=== PATIENT | female | born 1965 | race Caucasian/White ===

== ENCOUNTER 2025-02-09 09:21 | Outpatient (CLI) | payer BC, SELFPAY ==
--- OUTSIDE RECORDS SUMMARY | 2025-02-09 09:28 | XMS_ITS | Data Portability ---
Author Organization [facility] MANITravis Soria Address [address] [place] [address] Care Team Providers Care Health Editor Name Role Phone GENARO PEREZ Primary Care Provider Assessment Encounter Date Assessment Date Assessment LastModified by Organization Details LastModified Time 04/12/2024 04/12/2024 Continue current therapy blood works been ordered osteoarthritis meloxicam obese she is losing weight with the Ozempic diabetes Ozempic metformin dyslipidemia rosuvastatin anxiety sertraline Cologuard and mammogram in July 2023 rtc 6 months Not available 04/14/2024 18:19:49 10/08/2024 10/08/2024 continue current therapy we are trying to get her mammogram reports from [facility] eye exam report diabetic foot exam report her blood pressure is well controlled all questions have been answered follow up 6 months [email or web address] Not available 10/14/2024 16:19:28 Plan of Treatment Reminders Order Date Submit Date Provider Last Modified By Organization Details Last Modified Time Details Appointments ANY 15 2024 01:30P M Genaro Perez MD Not available Not available Not available Lab noninvasi ve colorecta l cancer DNA + occult blood screening , QL, stool 2023 024 Dan[facility] d[facility] (Cologuard Orders Only), [address], [address], [place], [address], 04/26/2024 00:59:27 Referral None recorded. Procedures None recorded. Surgeries None recorded. Imaging None recorded. Medication Orders None recorded. Patient TargetsNo targets recorded. Patient Instructions Encounter Date Encounter Id Patient Instructions Last Modified By Organization Details Last Modified Time 10/08/2024 [id number] A healthy lifestyle: care instructions [email or web address] Not available 10/08/2024 14:55:00 Reason for Referral None Reported. Results Created Date Observation Date Name Description Value Unit Range Abnormal Flag Note LastModifiedBy Organization Detail LastModifiedTime 04/12/20 24 04/13/2024 LIPID PANEL cholesterol, total 160 mg/dL 100-19 9 Not Available [facility] ([facility]) [address] [place], [address], 04/13/2024 08:24:40 04/12/20 24 04/13/2024 LIPID PANEL triglyceride s 82 mg/dL 0-149 Not Available [facility] ([facility]) [address] [place], [address], 04/13/2024 08:24:40 04/12/20 24 04/13/2024 LIPID PANEL HDL cholesterol 61 mg/dL >39 Not Available [facility] ([facility]) [address] [place], [address], 04/13/2024 08:24:40 04/12/20 24 04/13/2024 LIPID PANEL VLDL cholesterol chinedu 15 mg/dL 5-40 Not Available [facility] ([facility]) [address] [place], [address], 04/13/2024 08:24:40 04/12/20 24 04/13/2024 LIPID PANEL LDL chol calc ([facility]) 84 mg/dL 0-99 Not Available [facility] ([facility]) [address] [place], [address], 04/13/2024 08:24:40 04/12/20 24 04/13/2024 COMP. METAB OLIC PANEL (14) glucose 106 mg/dL 70-99 above high normal Not Available [facility] ([facility]) [address] [place], [address], 04/13/2024 08:24:41 04/12/20 24 04/13/2024 COMP. METAB OLIC PANEL (14) BUN 12 mg/dL 6-24 Not Available [facility] ([facility]) [address] [facility] [place], [address], 04/13/2024 08:24:41 04/12/20 24 04/13/2024 COMP. METAB OLIC PANEL (14) creatinine 0.75 mg/dL 0.57-1 .00 Not Available [facility] ([facility]) [address] [facility] [place], [address], 04/13/2024 08:24:41 04/12/20 24 04/13/2024 COMP. METAB OLIC PANEL (14) eGFR 93 mL/mi n/1.7 3 >59 Not Available [facility] ([facility]) [address] [facility] [place], [address], 04/13/2024 08:24:41 04/12/20 24 04/13/2024 COMP. METAB OLIC PANEL (14) BUN/creatini ne ratio 16 9-23 Not Available [facility] ([facility]) [address] [facility] [place], [address], 04/13/2024 08:24:41 04/12/20 24 04/13/2024 COMP. METAB OLIC PANEL (14) sodium 140 mmol/ L 134-14 4 Not Available [facility] ([facility]) [address] [facility] [place], [address], 04/13/2024 08:24:41 04/12/20 24 04/13/2024 COMP. METAB OLIC PANEL (14) potassium 4.4 mmol/ L 3.5-5. 2 Not Available [facility] ([facility]) [address] [facility] [place], [address], 04/13/2024 08:24:41 04/12/20 24 04/13/2024 COMP. METAB OLIC PANEL (14) chloride 101 mmol/ L 96-106 Not Available [facility] ([facility]) [address] [place], [address], 04/13/2024 08:24:41 04/12/20 24 04/13/2024 COMP. METAB OLIC PANEL (14) carbon dioxide, total 26 mmol/ L 20 Not Available [facility] ([facility]) [address] [place], [place], [address], 04/13/2024 08:24:41 04/12/20 24 04/13/2024 COMP. METAB OLIC PANEL (14) calcium 9.5 mg/dL 8.7-10 .2 Not Available [facility] ([facility]) [address] [place], [address], 04/13/2024 08:24:41 04/12/20 24 04/13/2024 COMP. METAB OLIC PANEL (14) protein, total 6.9 g/dL 6.0-8. 5 Not Available [facility] ([facility]) [address], [place], [address], 04/13/2024 08:24:41 04/12/20 24 04/13/2024 COMP. METAB OLIC PANEL (14) albumin 4.5 g/dL 3.8-4. 9 Not Available [facility] ([facility]) [address] [place], [place], [address], 04/13/2024 08:24:41 04/12/20 24 04/13/2024 COMP. METAB OLIC PANEL (14) globulin, total 2.4 g/dL 1.5-4. 5 Not Available [facility] ([facility]) [address] [place], [address], 04/13/2024 08:24:41 04/12/20 24 04/13/2024 COMP. METAB OLIC PANEL (14) A/G ratio 1.9 Not Available [facility] ([facility]) [address] [place], [address], 04/13/2024 08:24:41 04/12/20 24 04/13/2024 COMP. METAB OLIC PANEL (14) bilirubin, total 0.3 mg/dL 0.0-1. 2 Not Available [facility] ([facility]) [address] [place], [address], 04/13/2024 08:24:41 04/12/20 24 04/13/2024 COMP. METAB OLIC PANEL (14) alkaline phosphatase 140 IU/L 44-121 above high normal Not Available [facility] ([facility]) [address] [facility] [place], [address], 04/13/2024 08:24:41 04/12/20 24 04/13/2024 COMP. METAB OLIC PANEL (14) AST (SGOT) 15 IU/L 0-40 Not Available [facility] ([facility]) [address] [place], [address], 04/13/2024 08:24:41 04/12/20 24 04/13/2024 COMP. METAB OLIC PANEL (14) ALT (SGPT) 9 IU/L 0-32 Not Available [facility] ([facility]) [address] [place], [address], 04/13/2024 08:24:41 04/12/20 24 04/13/2024 HEMOG LOBIN A1C hemoglobin A1C 5.6 % 4.8-5. 6 Predi abete s: 5.7 - 6.4 Diabe ankush: >6.4 Glyce sofie contr ol for adult s with diabe ankush: <7.0 Not Available [facility] ([facility]) [address] [place], [address], 04/13/2024 08:24:42 04/12/20 24 04/13/2024 CBC WITH DIFFE RENTI AL/PL ATELE T WBC 5.2 x10e3 /uL 3.4-10 .8 Not Available [facility] ([facility]) [address] [place], [address], 04/13/2024 08:24:43 04/12/20 24 04/13/2024 CBC WITH DIFFE RENTI AL/PL ATELE T RBC 4.78 x10e6 /uL 3.77-5 .28 Not Available [facility] ([facility]) [address] [place], [address], 04/13/2024 08:24:43 04/12/20 24 04/13/2024 CBC WITH DIFFE RENTI AL/PL ATELE T hemoglobin 13.6 g/dL 11.1-1 5.9 Not Available [facility] ([facility]) [address] [place], [address], 04/13/2024 08:24:43 04/12/20 24 04/13/2024 CBC WITH DIFFE RENTI AL/PL ATELE T hematocrit 41.6 % 34.0-4 6.6 Not Available [facility] ([facility]) [address] [place], [address], 04/13/2024 08:24:43 04/12/20 24 04/13/2024 CBC WITH DIFFE RENTI AL/PL ATELE T MCV 87 fL 79-97 Not Available [facility] ([facility]) [address] [place], [address], 04/13/2024 08:24:43 04/12/20 24 04/13/2024 CBC WITH DIFFE RENTI AL/PL ATELE T MCH 28.5 pg 26.6-3 3.0 Not Available [facility] ([facility]) [address] [place], [address], 04/13/2024 08:24:43 04/12/20 24 04/13/2024 CBC WITH DIFFE RENTI AL/PL ATELE T MCHC 32.7 g/dL 31.5-3 5.7 Not Available [facility] ([facility]) [address] [place], [address], 04/13/2024 08:24:43 04/12/20 24 04/13/2024 CBC WITH DIFFE RENTI AL/PL ATELE T RDW 13.3 % 11.7-1 5.4 Not Available [facility] ([facility]) [address] [facility], [place], [address], 04/13/2024 08:24:43 04/12/20 24 04/13/2024 CBC WITH DIFFE RENTI AL/PL ATELE T platelets 236 x10e3 /uL 150-45 0 Not Available [facility] ([facility]) [address] [facility], [place], [address], 04/13/2024 08:24:43 04/12/20 24 04/13/2024 CBC WITH DIFFE RENTI AL/PL ATELE T neutrophils 71 % notest ab. Not Available [facility] ([facility]) [address] [facility], [place], [address], 04/13/2024 08:24:43 04/12/20 24 04/13/2024 CBC WITH DIFFE RENTI AL/PL ATELE T lymphs 20 % notest ab. Not Available [facility] ([facility]) [address] [facility], [place], [address], 04/13/2024 08:24:43 04/12/20 24 04/13/2024 CBC WITH DIFFE RENTI AL/PL ATELE T monocytes 6 % notest ab. Not Available [facility] ([facility]) [address] [facility], [place], [address], 04/13/2024 08:24:43 04/12/20 24 04/13/2024 CBC WITH DIFFE RENTI AL/PL ATELE T eos 2 % notest ab. Not Available [facility] ([facility]) [address] [facility], [place], [address], 04/13/2024 08:24:43 04/12/20 24 04/13/2024 CBC WITH DIFFE RENTI AL/PL ATELE T basos 1 % notest ab. Not Available [facility] ([facility]) [address] [facility], [place], [address], 04/13/2024 08:24:43 04/12/20 24 04/13/2024 CBC WITH DIFFE RENTI AL/PL ATELE T neutrophils (absolute) 3.7 x10e3 /uL 1.4-7. 0 Not Available [facility] ([facility]) [address] [facility], [place], [address], 04/13/2024 08:24:43 04/12/20 24 04/13/2024 CBC WITH DIFFE RENTI AL/PL ATELE T lymphs (absolute) 1.0 x10e3 /uL 0.7-3. 1 Not Available [facility] ([facility]) [address] [facility], [place], [address], 04/13/2024 08:24:43 04/12/20 24 04/13/2024 CBC WITH DIFFE RENTI AL/PL ATELE T monocytes(ab solute) 0.3 x10e3 /uL 0.1-0. 9 Not Available [facility] ([facility]) [address] [place], [address], 04/13/2024 08:24:43 04/12/20 24 04/13/2024 CBC WITH DIFFE RENTI AL/PL ATELE T eos (absolute) 0.1 x10e3 /uL 0.0-0. 4 Not Available [facility] ([facility]) [address] [place], [address], 04/13/2024 08:24:43 04/12/20 24 04/13/2024 CBC WITH DIFFE RENTI AL/PL ATELE T baso (absolute) 0.0 x10e3 /uL 0.0-0. 2 Not Available [facility] ([facility]) [address] [place], [address], 04/13/2024 08:24:43 04/12/20 24 04/13/2024 CBC WITH DIFFE RENTI AL/PL ATELE T immature granulocytes 0 % notest ab. Not Available [facility] ([facility]) [address] [facility], [place], [address], 04/13/2024 08:24:43 04/12/20 24 04/13/2024 CBC WITH DIFFE RENTI AL/PL ATELE T immature grans (abs) 0.0 x10e3 /uL 0.0-0. 1 Not Available [facility] ([facility]) [address] [facility], [place], [address], 04/13/2024 08:24:43 04/23/20 24 04/23/2024 COLOG UARD cologuard result reportable NEGATI VE negati ve normal NEGAT DAT TEST RESUL T. A negat dat Colog uard resul t indic ates a low likel ihood that a color ectal cance r (CRC) or advan lorena adeno ma (rufus omato us polyp s with more advan lorena pre-m align ant featu res) is prese nt. The chanc e that a perso n with a negat dat Colog uard test has a color ectal cance r is less than 1 in 1500 (nega tive predi ctive value >99.9 %) or has an advan lorena adeno ma is less than 5.3% (nega tive predi ctive value 94.7% ). These data are based on a prosp ectiv e cross -sect ional study of 10,00 0 indiv idual s at [facility] risk for color ectal cance r who were scree jimmy with both Colog uard and colon oscop y. (Jeffrey Jiang et al, N Engl J Med 2014; 370(1 4):12 86-12 97) The yung l value (refe rence range ) for this assay is negat dat. COLOG UARD RE-SC REENI NG RECOM MENDA TION: Perio dic color ectal cance r scree victor manuel is an impor tant part of preve ntive healt hcare for asymp tomat ic indiv idual s at [facility] risk for color ectal cance r. Follo wing a negat dat Colog uard resul t, the Ameri can Cance r Socie ty and U.S. Multi -Soci ety Task Force scree victor manuel guide lines recom mend a Colog uard re-sc marvin escamilla inter [place] of 3 years . Refer ences : Ameri can Cance r Socie ty Guide line for Color ectal Cance r Scree victor manuel: https ://ww w.can cer.o rg/ca ncer/ colon -rect al-ca ncer/ detec tion- diagn osis- stagi ng/ac s-rec ommen datio ns.ht ml.; Dane JONES, Laila scott CR, Roosevelt RiveraK, Color ectal Cance r Scree victor manuel: Recom menda tions for Physi cians and Patie nts from the U.S. Multi -Soci ety Task Force on Color ectal Cance r Scree victor manuel , Am Nicole vorantsonja rolog y 2017; 112:1 016-1 030. TEST DESCR IPTIO N: Harrells site algor ithmi c jannet sis of stool DNA-b briseida dudley with hemog lobin immun oassa y. Quant itati ve value s of indiv idual bioma rkers are not repor table and are not assoc iated with indiv idual bioma rker resul t refer ence range s. Colog uard is inten ded for color ectal cance r scree victor manuel of adult s of eithe r sex, 45 years or older , who are at [facility] for color ectal cance r (CRC) . Colog uard has been appro bartolome for use by the U.S. FDA. The perfo rmanc e of Colog uard was estab lishe d in a cross secti onal study of [facility] adult s aged 50-84 . Colog uard perfo rmanc e in patie nts ages 45 to 49 years was estim ated by rebel-hilaria umanzor jannet sis of near- age group s. Colon oscop ies perfo rmed for a posit dat resul t may find as the most clini isabelle signi fican t lesio n: color ectal cance r [4.0% ], advan lorena adeno ma (incl uding sessi le dipika garcia polyp s great er than or equal to 1cm diame ter) [20%] or non- advan lorena adeno ma [31%] ; or no color ectal neopl katty [45%] . These estim ates are deriv ed from a prosp ectiv e cross -sect ional scree victor manuel study of 0 indiv idual s at [facility] risk for color ectal cance r who were scree jimmy with both Colog uard and colon oscop y. (Jeffrey Jiang et al, N Engl J Med 2014; 370(1 4):12 86-12 97.) Colog uard may produ ce a false negat dat or false posit dat resul t (no color ectal cance r or preca ncero us polyp prese nt at colon oscop y follo w up). A negat dat Colog uard test resul t does not guara ntee the absen ce of CRC or advan lorena adeno ma (pre- cance r). The curre nt Colog uard scree victor manuel inter [place] is every 3 years . (Amer ican Cance r Socie ty and U.S. Multi -Soci ety Task Force ). Colog uard perfo rmanc e data in a 0 patie nt pivot al study using colon oscop y as the refer ence metho d can be [facility]es sed [facility] locat ion: www.e xactl abs.c om/re sults . Addit ional descr iptio n of the Colog uard test proce ss, warni ngs and preca ution s can be found at www.c kelvin diana.c om. Not Available [facility] (Cologuard Orders Only) [address], [place], [address], 04/26/2024 00:59:27 Result Notes None recorded. Problems Name Problem SNOMED Code Status Onset Date Resolution Date Notes Provider Name and Address Organization Details Recorded Time Screening for malignant neoplasm of colon Active 2023 Jarett Fisher MA null, [place] - [facility] 4 10:52:28 Hyperlipidemia 07146383 Active 2023 Jarett Fisher [place] null, [place] [facility] 4 10:52:28 Diabetes mellitus 23277018 Active 2023 Jarett Fisher [place] null, [place] - [facility] 4 10:52:29 Anxiety 75021761 Active 2023 Genaro Perez MD Attn: Kota manrique,[address] [facility], [place], [address], [facility] - [facility] 4 16:19:05 Problem Notes None recorded. Medical Equipment None Reported. Allergies Allergen ID Allergen Name Allergen Category Reaction Reaction Severity Criticality Documentation Date Start Date Code Code System Note Provider Name and Address Organization Details Recorded Time 368236 Product containin g penicilli n (product) medicatio n Not available Not available Not available 04/12/2024 15769 8001 SNOMED Not Available Not Available Not Available 490631 Substance with sulfonami de structure and antibacte rial mechanism of action (substanc e) medicatio n Not available Not available Not available 04/12/2024 76385 8003 SNOMED Not Available Not Available Not Available 710867 Skelaxin medicatio n Not available Not available Not available 04/12/2024 02983 5 RxNorm Not Available Not Available Not Available Medications Name Sig Start Date Stop Date Status Note LastModified by Organization Details LastModified Time azithromyci n 250 mg tablet TAKE 2 TABLETS BY MOUTH TODAY, THEN TAKE 1 TABLET DAILY FOR 4 DAYS DIRECTED 02/07 completed Not Available Not Available Not Available meloxicam 15 mg tablet TAKE 1 TABLET BY MOUTH EVERY DAY active Not Available Not Available No t Available sertraline 100 mg tablet TAKE 1 TABLET DAILY 2024 active Not Available Not Available Not Avai lable metformin 1,000 mg tablet TAKE 1 TABLET BY MOUTH TWICE A DAY active Not Available Not Available No t Available sertraline 50 mg tablet 04/12 completed Not Available Not Available Not Available rosuvastati n 20 mg tablet TAKE 1 TABLET BY MOUTH EVERY DAY active Not Available Not Available No t Available Ozempic 1 mg/dose (4 mg/3 mL) subcutaneou s pen injector INJECT 1 MG UNDER THE SKIN ONE DAY A WEEK active Not Available Not Available No t Available Vitals Date Recorded Body height Body mass index (BMI) Body weight Heart rate Oxygen saturation Oxygen saturation in Arterial blood by Pulse oximetry Systolic blood pressure Diastolic blood pressure Provider Name and Address Organization Details Last Updated DateTime 4 167.64 cm 35.8 kg/m2 361132. 79 g 65 /min 97 % 97 % 124 mm[Hg] 84 mm[Hg] Amanda Moe MA [facility] 4 09:56:26 Date Recorded Body height Body mass index (BMI) Body weight Heart rate Oxygen saturation Oxygen saturation in Arterial blood by Pulse oximetry Systolic blood pressure Diastolic blood pressure Provider Name and Address Organization Details Last Updated DateTime 4 167.64 cm 36.3 kg/m2 778902. 85 g 78 /min 97 % 97 % 122 mm[Hg] 82 mm[Hg] Xenia Cordero MA [facility] 4 14:47:01 Date Recorded Body height Body mass index (BMI) Body weight Heart rate Oxygen saturation Oxygen saturation in Arterial blood by Pulse oximetry Systolic blood pressure Diastolic blood pressure Provider Name and Address Organization Details Last Updated DateTime 5 167.64 cm 35.2 kg/m2 63676.2 1 g 82 /min 98 % 98 % 112 mm[Hg] 64 mm[Hg] Xenia Cordero MA [facility] 5 14:12:48 Social History Question Answer Notes LastModified by Organizat ion Details LastModified Time Tobacco Smoking Status Never Smoker Amanda Moe MA [facility] 04/12/2024 09:54:27 Do You Have An Advance Directive? No Information n ot available 10/08/2024 What Is Your Level Of Alcohol Consumption? Occasional Information not available 04/12/2024 Are You Blind Or Do You Have Difficulty Seeing? No Information n ot available 04/12/2024 What Is Your Level Of Caffeine Consumption? Occasional Information not available 02/07/2025 In The 14 Days Before Symptom Onset, Have You Had Close Contact With A Laboratory-confirm ed COVID-19 While That Case Was Ill? No Information n ot available 10/08/2024 In The 14 Days Before Symptom Onset, Have You Had Close Contact With A Person Who Is Under Investigation For COVID-19 While That Person Was Ill? No Information not available 10/08/2024 Have You Been To An Area Known To Be High Risk For COVID-19? No Information not available 10/08/2024 Are You Deaf Or Do You Have Serious Difficulty Hearing? No Information not available 04/12/2024 Are There Any Guns Present In Your Home? No Information not available 10/08/2024 What Was The Date Of Your Most Recent Tobacco Screening? 02/07/2025 Information not available 02/07/2025 What Is Your Relationship Status? Information not available 04/12/2024 Do You Use Your Seat Belt Or Car Seat Routinely? Yes Information not available 10/08/2024 Do You Have Smoke And Carbon Monoxide Detectors In Your Home? Yes Information not available 10/08/2024 Do You Use Any Illicit Or Recreational Drugs? No Information not available 02/07/2025 Do You Use Sunscreen Routinely? No Information not available 10/08/2024 Has Tobacco Cessation Counseling Been Provided? No Information not available 02/07/2025 Do You Or Have You Ever Used Any Other Forms Of Tobacco Or Nicotine? No Information not available 02/07/2025 Sex: Female Functional Status Question Answer Note LastModified by Organization D etails LastModified Time Are you able to care for yourself? Yes Information n ot available 04/12/2024 Mental Status None recorded. Family History Nothing Reported. Medical History Condition Response High Blood Pressure Y High Cholesterol Y Gynecological HistoryNo gynecological history recorded. Obstetrics History GPAL:G 0 P 0 0 0 0 Immunizations Vaccine Type Date Status Note Provider Nam e and Address Organization Details Recorded Time Influenza, split virus, quadrivalent, preservative 2 completed Jarett Fisher [place] null, [place] - [facility] 04/12/2024 11:29:53 Influenza, split virus, quadrivalent, preservative 1 completed JEFFERY Ba[place], [place] - [facility] 04/12/2024 11:29:53 COVID-19 vaccine, vector-nr, rS-Ad26, PF, 0.5 mL 1 completed JEFF[place] [facility] 04/12/2024 11:29:53 influenza, unspecified formulation 8 completed JEFFERY [place] [facility] 04/12/2024 11:29:53 Influenza, split virus, quadrivalent, PF 0 completed JEFF[place] [facility] 04/12/2024 11:29:53 Past Encounters Encounter ID Performer Location Encounter Start Date Encounter Closed Date Diagnosis/Indication Diagnosis SNOMED-CT Code Diagnosis ICD10 Code Diagnosis Note [id number] Genaro Perez MD [facility] [place] [address] [place] [address] 04/12/2024 09:45:02 04/12/2024 11:00:37 Screening for malignant neoplasm of colon 047698810 Z12.11 Hyperlipidemia 80830125 E78.5 Diabetes mellitus 711408 09 E11.9 Anxiety 50513394 F41.9 Osteoarthritis 372758712 M19.90 [id number] Genaro Perez MD [facility] [place] [address] [place] [address] 10/08/2024 14:07:36 10/08/2024 15:54:33 Body mass index 30+ - obesity 468622625 Z68.36 Obesity 053418709 E66.9 Hyperlipidemia 17174374 E78.5 Diabetes mellitus 500197 09 E11.9 Anxiety 26081111 F41.9 [id number] Jarett Fisher MA [facility] [place] [address] [place] [address] 02/07/2025 13:57:12 02/07/2025 15:00:45 Body mass index 30+ - obesity 464389080 Z68.36 Obesity 025004355 E66.9 Diabetes mellitus 884698 09 E11.9 Hyperlipidemia 21753324 E78.5 Screening mammography 24 483261 Z12.31 Health Concerns Section Related Observation LastModified by Organization Detai ls LastModified Time None Recorded Concern Status LastModified by Organization Details LastModified Time None Recorded Advance Directives Directive N: Payers Encounter Date Sequence Insurance Name Policy Number Policy Peoples Covered Member ID Peoples Member ID Guarantor Name 04/12/2024 1 [place] [id number] Salma Urias [id number] Salma Urias 04/12/2024 2 [place] [id number] Salma Urias [id number] Salma Urias 10/08/2024 1 [place] [id number] Salma Urias [id number] Salma Urias 10/08/2024 2 [place] [id number] Salma Urias [id number] Salma Urias Notes Date Note Type Note Provider Name and Address Organization Details Recorded Time 04/12/2024 text/html Follow-up of her medical problems her osteoarthritis seems to be doing stable diabetes has been doing fine no polyphagia or polydipsia change continues to best success with the Ozempic dyslipidemia taking rosuvastatin without any side effects and her sertraline has her anxiety under control Genaro Perez MD Attn: Accounting,[address] [facility], [place], [address], [facility] 04/14/2024 18:20:17 10/08/2024 text/html diabetes tolerat ing medications without any hypoglycemic spells dyslipidemia taking rosuvastatin trying to follow a low-fat diet anxiety has been stable osteoarthritis is doing okay. Genaro Perez MD Attn: Accounting[address] [facility], [place], [address], [facility] 10/14/2024 16:19:45 OBGyn Episode No OBEpisode recorded.
--- OUTSIDE RECORDS SUMMARY | 2025-02-09 09:28 | XMS_ITS | CONTINUITY OF CARE DOCUMENT ---
Author Name donaldo fulton Address Unknown Organization [facility] Address [address] [place] [address] Phone [phone] Care Team Providers Care Repairer Kiln Car Name Role Phone Silverio HUGHES, Corey Unavailable GENARO DOWELL MD Unavailable GENARO DOWELL MD Unavailable INSURANCE PROVIDERS Payer name Policy type / Coverage type Una red green party ID [facility] [id number] Other [id number] [facility] [id number]
--- OUTSIDE RECORDS SUMMARY | 2025-02-09 09:29 | XMS_ITS | Data Portability ---
Author Organization [place] [facility], Main Office Address [address] [place] [address] Care Team Providers Care Centerpuncher Name Role Phone GENARO PEREZ Primary Care Provider [phone] GENARO PEREZ Referring Provider Assessment Encounter Date Assessment Date Assessment LastModified by Organization Details LastModified Time 03/24/2023 03/24/2023 Work reviewed looks fine diabetes dyslipidemia anxiety been discussed in detail continue current therapy follow-up in 6 months. [email or web address] Not available 03/24/2023 23:21:30 07/18/2023 07/18/2023 Continue current therapy increase Zoloft to 100 mg of follow-up in 4 months [email or web address] Not available 07/18/2023 22:49:41 11/14/2023 11/14/2023 Will continue current therapy follow-up in 4 months diagnosis in assessment plan and management of those diagnosis discussed [email or web address] Not available 11/30/2023 08:53:23 Plan of Treatment Reminders Order Date Submit Date Provider Last Modified By Organization Details Last Modified Time Details Appointments None recorded . Lab lipid panel, serum 023 03/24/20 [facility] (Lab), [address] [place], [address], 13:25:41 CMP, serum or plasma 023 03/24/20 [facility] (Lab), [address] [place], [address], 13:25:49 CBC w/ auto diff 023 03/24/20 TRE[facility] (Lab), [address] [place], [address], 3 13:01:23 HbA1c (hemoglo bin A1c), blood 023 03/24/20 cyahl [facility] (Lab), [address] [place], [address], 3 16:02:02 Referral None recorded . Procedures None recorded . Surgeries None recorded . Imaging None recorded . Medication Orders Zoloft 100 mg tablet 023 07/18/20 [facility], [address] [place] [address], [address], 3 22:49:04 Patient TargetsNo targets recorded. Patient InstructionsNo instructions recorded. Reason for Referral None Reported. Results Created Date Observation Date Name Description Value Unit Range Abnormal Flag Note LastModifiedBy Organization Detail LastModifiedTime 11/19/1911/19/2022 HEMOG LOBIN A1C HA1C 5.6 % 4.0-6. 0 Diabe ankush Scree victor manuel Crite jessy: <5.7% Consi stent with absen ce of diabe ankush 5.7-6 .4% Consi stent with incre ased risk for diabe ankush (pred iabet es) >OR=6 .5% Consi stent with diabe ankush REFER ENCE: Diabe ankush Care 2016, 39(Sarah ppl.1 ):s13 -s22 Not Available [facility] (Lab) [address] [place], [address], 11/19/2022 14:58:26 11/19/19 23 11/19/2022 COMPR EHENS DAT METAB OLIC PANEL GFR >60 Refer ence Range : Ashton ge GFR Healt hy Adult : >60 mL/mi n/1.7 3 m2 Chron ic Kidne y Disea se: 15-60 mL/mi n/1.7 3 m2 Kidne y Failu re: <15/m L/min /1.73 m2 www.n iddk. nih.g ov The MDRD study equat ion has not been valid ated in child jorje <18 years of age; pregn ant women ; the elder ly >85 years of age; or in some racia l or ethni c subgr oups, such as [facility] nics. Outsi de the valid ated ant eters , estim ated GFR is less accur ate, requi ring clini chinedu judgm ent on a case- by-ca se basis . Clini chinedu inter preta tion for other races and ages must be made by the clini alexander. The MDRD study equat ion has not been valid ated for the evalu ation of serum creat inine relat ed to nutri reza l statu s or medic ation usage . For perso ns <18 years of age, a pedia tric GFR calcu lator is avail able on the [facility] websi te: https ://toni w.sandee reese.o rg/pr ofess ional s/kdo qi/gf r_cal culat or Not Available [facility] (Lab) [address] [place], [address], 11/19/2022 12:01:11 11/19/19 23 11/19/2022 COMPR EHENS DAT METAB OLIC PANEL alkaline phosphatase 119 U/L 38-126 Not Available [facility] (Lab) [address] [place], [address], 11/19/2022 12:01:11 11/19/19 23 11/19/2022 COMPR EHENS DAT METAB OLIC PANEL alanine aminotransfe rase 15 U/L 0-35 Not Available [facility] (Lab) [address] [place], [address], 11/19/2022 12:01:11 11/19/19 23 11/19/2022 COMPR EHENS DAT METAB OLIC PANEL aspartate aminotransfe rase 17 U/L 15-37 Not Available [facility] (Lab) [address] [place], [address], 11/19/2022 12:01:11 11/19/19 23 11/19/2022 COMPR EHENS DAT METAB OLIC PANEL bilirubin, total 0.50 mg/dL 0.20-1 .30 Not Available [facility] (Lab) [address] [place], [address], 11/19/2022 12:01:11 11/19/19 23 11/19/2022 COMPR EHENS DAT METAB OLIC PANEL calcium 9.5 mg/dL 8.4-10 .2 Not Available [facility] (Lab) [address] [place], [address], 11/19/2022 12:01:11 11/19/19 23 11/19/2022 COMPR EHENS DAT METAB OLIC PANEL total protein 7.1 g/dL 6.3-8. 2 Not Available [facility] (Lab) [address] [place], [address], 11/19/2022 12:01:11 11/19/19 23 11/19/2022 COMPR EHENS DAT METAB OLIC PANEL albumin 4.4 g/dL 3.4-5. 0 Not Available [facility] (Lab) [address] [place], [address], 11/19/2022 12:01:11 11/19/19 23 11/19/2022 COMPR EHENS DAT METAB OLIC PANEL globulin 2.7 g/dL 2.6-4. 2 Not Available [facility] (Lab) [address] [place], [address], 11/19/2022 12:01:11 11/19/19 23 11/19/2022 COMPR EHENS DAT METAB OLIC PANEL A/G ratio 1.6 ratio 1.0-2. 0 Not Available [facility] (Lab) [address] [place], [address], 11/19/2022 12:01:11 11/19/19 23 11/19/2022 COMPR EHENS DAT METAB OLIC PANEL sodium 140 mmol/ L 137-[address] [facility] (Lab) [address] [place], [address], 11/19/2022 12:01:11 11/19/19 23 11/19/2022 COMPR EHENS DAT METAB OLIC PANEL potassium 4.3 mmol/ L 3.5-5. [address] [facility] (Lab) [address] [place], [address], 11/19/2022 12:01:11 11/19/19 23 11/19/2022 COMPR EHENS DAT METAB OLIC PANEL chloride 101 mmol/ L 98-107 Not Available [facility] (Lab) [address] [place], [address], 11/19/2022 12:01:11 11/19/19 23 11/19/2022 COMPR EHENS DAT METAB OLIC PANEL carbon dioxide 31 mmol/ L 22-[address] [facility] (Lab) [address] [place], [address], 11/19/2022 12:01:11 11/19/19 23 11/19/2022 COMPR EHENS DAT METAB OLIC PANEL anion gap 12.3 mmol/ L 14-22 low Not Available [facility] (Lab) [address] [place], [address], 11/19/2022 12:01:11 11/19/19 23 11/19/2022 COMPR EHENS DAT METAB OLIC PANEL glucose 130 mg/dL 70-99 high Not Available [facility] (Lab) [address] [place], [address], 11/19/2022 12:01:11 11/19/19 23 11/19/2022 COMPR EHENS DAT METAB OLIC PANEL BUN 12 mg/dL 8-[address] [facility] (Lab) [address] [place], [address], 11/19/2022 12:01:11 11/19/19 23 11/19/2022 COMPR EHENS DAT METAB OLIC PANEL creatinine 0.75 mg/dL 0.66-1 .25 Not Available [facility] (Lab) [address] [place], [address], 11/19/2022 12:01:11 11/19/19 23 11/19/2022 LIPID PANEL cholesterol 176 mg/dL 140-19 9 NIH JOSELITO NSUS RECOM MENDA TION FOR DENG STERO L: ADULT CHILD LOW RISK: <200 <170 BORDE RLINE : <200- 239 ----- HIGH RISK: >240 >200 Not Available [facility] (Lab) [address] [place], [address], 11/19/2022 12:00:58 11/19/19 23 11/19/2022 LIPID PANEL triglyceride s 99 mg/dL 0-150 NIH JOSLEITO NSUS REPOR T RECOM MENDA TION FOR TRIGL YCERI HAILEY: ADULT CHILD LOW RISK: <150 ----- BODER LINE: 150-1 99 ----- HIGH RISK: >200 ----- Not Available [facility] (Lab) [address] [place] [address], [address], 11/19/2022 12:00:58 11/19/19 23 11/19/2022 LIPID PANEL HDL cholesterol 62 mg/dL 40- Not Available [facility] (Lab) [address] [place], [address], 11/19/2022 12:00:58 11/19/19 23 11/19/2022 LIPID PANEL LDL cholesterol, calculated 94 mg/dL 0-130 NIH JOSELITO NSUS REPOR T RECOM MENDA TIONS FOR LDL: ADULT CHILD LOW RISK <130 <110 (OPTI MAL LDL) <100 ----- BORDE RLINE : 130-1 59 ----- HIGH RISK: >160 >130 A TRIGL YCERI DE RESUL T >400 INVAL IDATE S THE CALCU LATIO N FOR LDL FRACT IONAT ION - THE LDL RESUL T WILL NOT BE REPOR EMILY. Not Available [facility] (Lab) [address], [place], [address], 11/19/2022 12:00:58 12/04/19 23 12/04/2022 APTT APTT 27.0 secon ds 23.4-3 1.4 PLEAS E NOTE NEW APTT REFER ENCE RANGE EFFEC TIVE 10/18 . Not Available [facility] (Lab) [address] [facility], [place], [address], 12/04/2022 12:23:13 12/04/1912/04/2022 PROTI ME W/INR protime 9.8 secon ds 9.5-11 .5 Not Available [facility] (Lab) [address] [facility], [place], [address], 12/04/2022 12:23:09 12/04/1912/04/2022 PROTI ME W/INR INR 1.0 INR INDIC ATION S 2.0 - 3.0 PROPH YLAXI S: VENOU S THROM BOSIS (HIGH RISK SURGE RY) AND SYSTE OMID EMBOL ISM (TISS UE HEART VALVE S, AMI VALVU LAR HEART DISEA SE AND ATRIA L FIBRI LLATI ON). TREAT MENT: VENOU S THROM BOSIS AND PULMO NARY EMBOL ISM BILEA FLET MECHA NICAL VALVE S IN AORTI C POSIT ION. 2.5 - 3.5 MECHA NICAL PROST HETIC HEART VALVE S (TILT ING DISK VALVE S AND BILEA FLET MECHA NICAL VALVE S IN WISAM L POSIT ION). PREVE NTION OF RECUR RENT MYOCA RDIAL INFAR CTION . ANTIP HOSPH OLIPI D SYNDR OME. Not Available [facility] (Lab) [address] [facility], [place], [address], 12/04/2022 12:23:09 02/04/20 23 12/04/2022 CBC/C OMPLE TE BLD COUNT W/DIF F lymphocytes 19.9 % 16.0-4 7.0 Not Available [facility] (Lab) [address] [place], [address], 12/04/2022 12:10:32 12/04/19 23 12/04/2022 CBC/C OMPLE TE BLD COUNT W/DIF F monocytes 6.3 % 5.0-12 .0 Not Available [facility] (Lab) [address] [place], [address], 12/04/2022 12:10:32 12/04/1912/04/2022 CBC/C OMPLE TE BLD COUNT W/DIF F eosinophils 2.4 % 1.0-7. 0 Not Available [facility] (Lab) [address] [place], [address], 12/04/2022 12:10:32 12/04/19 23 12/04/2022 CBC/C OMPLE TE BLD COUNT W/DIF F basophils 0.5 % 0.0-2. 0 Not Available [facility] (Lab) [address] [place], [address], 12/04/2022 12:10:32 12/04/1912/04/2022 CBC/C OMPLE TE BLD COUNT W/DIF F immature granulocytes 0.2 % 0.00-0 .50 Not Available [facility] (Lab) [address] [place], [address], 12/04/2022 12:10:32 12/04/19 23 12/04/2022 CBC/C OMPLE TE BLD COUNT W/DIF F neutrophils, absolute count 4.48 x10'3 /uL 1.5-8. 0 Not Available [facility] (Lab) [address] [place], [address], 12/04/2022 12:10:32 12/04/19 23 12/04/2022 CBC/C OMPLE TE BLD COUNT W/DIF F lymphocytes, absolute count 1.26 x10'3 /uL 1.07-3 .43 Not Available [facility] (Lab) [address] [place], [address], 12/04/2022 12:10:32 12/04/19 23 12/04/2022 CBC/C OMPLE TE BLD COUNT W/DIF F monocytes, absolute count 0.40 x10'3 /uL 0.29-0 .99 Not Available [facility] (Lab) [address] [place], [address], 12/04/2022 12:10:32 12/04/1912/04/2022 CBC/C OMPLE TE BLD COUNT W/DIF F eosinophils, absolute count 0.15 x10'3 /uL 0.02-0 .53 Not Available [facility] (Lab) [address] [place], [address], 12/04/2022 12:10:32 12/04/19 23 12/04/2022 CBC/C OMPLE TE BLD COUNT W/DIF F basophils, absolute count 0.03 x10'3 /uL 0.01-0 .08 Not Available [facility] (Lab) [address] [place], [address], 12/04/2022 12:10:32 12/04/19 23 12/04/2022 CBC/C OMPLE TE BLD COUNT W/DIF F immature granulocytes ,absolute 0.01 x10'3 /uL 0.00-0 .05 Not Available [facility] (Lab) [address] [place], [address], 12/04/2022 12:10:32 12/04/19 23 12/04/2022 CBC/C OMPLE TE BLD COUNT W/DIF F nucleated red blood cells 0.0 % -0 Not Available [facility] (Lab) [address] [place], [address], 12/04/2022 12:10:32 12/04/19 23 12/04/2022 CBC/C OMPLE TE BLD COUNT W/DIF F NRBC# 0.00 x10'3 /uL Not Available [facility] (Lab) [address] [place], [address], 12/04/2022 12:10:32 12/04/19 23 12/04/2022 CBC/C OMPLE TE BLD COUNT W/DIF F white blood cells 6.3 x10'3 /uL 4.2-10 .8 Not Available [facility] (Lab) [address] [place], [address], 12/04/2022 12:10:32 12/04/19 23 12/04/2022 CBC/C OMPLE TE BLD COUNT W/DIF F red blood cells 4.50 x10'6 /uL 3.80-5 .20 Not Available [facility] (Lab) [address] [place], [address], 12/04/2022 12:10:32 12/04/19 23 12/04/2022 CBC/C OMPLE TE BLD COUNT W/DIF F hemoglobin 12.9 g/dL 12.0-1 5.6 Not Available [facility] (Lab) [address] [place], [address], 12/04/2022 12:10:32 12/04/19 23 12/04/2022 CBC/C OMPLE TE BLD COUNT W/DIF F hematocrit 39.4 % 35.7-4 5.7 Not Available [facility] (Lab) [address] [place], [address], 12/04/2022 12:10:32 12/04/19 23 12/04/2022 CBC/C OMPLE TE BLD COUNT W/DIF F mean red cell volume 87.6 fL 82.0-9 9.0 Not Available [facility] (Lab) [address] [place], [address], 12/04/2022 12:10:32 12/04/19 23 12/04/2022 CBC/C OMPLE TE BLD COUNT W/DIF F mean red cell hemoglobin 28.7 pg 27.0-3 3.0 Not Available [facility] (Lab) [address] [place], [address], 12/04/2022 12:10:32 12/04/19 23 12/04/2022 CBC/C OMPLE TE BLD COUNT W/DIF F mean RBC HGB concentratio n 32.7 g/dL 31.0-3 6.0 Not Available [facility] (Lab) [address] [place], [address], 12/04/2022 12:10:32 12/04/19 23 12/04/2022 CBC/C OMPLE TE BLD COUNT W/DIF F red cell distribution width 13.9 % 11.8-1 5.5 Not Available [facility]Lab[facility] [address] [facility] [place], [address], 12/04/2022 12:10:32 12/04/19 23 12/04/2022 CBC/C OMPLE TE BLD COUNT W/DIF F platelets 222 x10'3 /uL 150-40 0 Not Available [facility] (Lab) [address] [place], [address], 12/04/2022 12:10:32 12/04/19 23 12/04/2022 CBC/C OMPLE TE BLD COUNT W/DIF F mean platelet volume 10.3 fL 9.0-12 .4 Not Available [facility] (Lab) [address] [place], [address], 12/04/2022 12:10:32 12/04/19 23 12/04/2022 CBC/C OMPLE TE BLD COUNT W/DIF F neutrophils 70.7 % 39.0-7 2.0 Not Available [facility] (Lab) [address] [place], [address], 12/04/2022 12:10:32 03/11/2003/11/2023 COMPR EHENS DAT METAB OLIC PANEL sodium 138 mmol/ L 137-14 5 Not Available [facility] (Lab) [address] [place], [address], 03/11/2023 12:11:03 03/11/20 23 03/11/2023 COMPR EHENS DAT METAB OLIC PANEL potassium 4.5 mmol/ L 3.5-5. [address] [facility] (Lab) [address] [facility] [place], [address], 03/11/2023 12:11:03 03/11/20 23 03/11/2023 COMPR EHENS DAT METAB OLIC PANEL chloride 105 mmol/ L 98-[address] [facility] (Lab) [address] [place], [address], 03/11/2023 12:11:03 03/11/20 23 03/11/2023 COMPR EHENS DAT METAB OLIC PANEL carbon dioxide 26 mmol/ L 22-30 Not Available [facility] (Lab) [address] [place], [address], 03/11/2023 12:11:03 03/11/2003/11/2023 COMPR EHENS DAT METAB OLIC PANEL anion gap 11.5 mmol/ L 14-22 low Not Available [facility] (Lab) [address] [place], [address], 03/11/2023 12:11:03 03/11/20 23 03/11/2023 COMPR EHENS DAT METAB OLIC PANEL glucose 115 mg/dL 70-99 high Not Available [facility] (Lab) [address] [place], [address], 03/11/2023 12:11:03 03/11/20 23 03/11/2023 COMPR EHENS DAT METAB OLIC PANEL BUN 14 mg/dL 8-19 Not Available [facility] (Lab) [address] [place], [address], 03/11/2023 12:11:03 03/11/20 23 03/11/2023 COMPR EHENS DAT METAB OLIC PANEL creatinine 0.79 mg/dL 0.66-1 .25 Not Available [facility] (Lab) [address] [place], [address], 03/11/2023 12:11:03 03/11/20 23 03/11/2023 COMPR EHENS DAT METAB OLIC PANEL GFR >60 Refer ence Range : Ashton ge GFR Healt hy Adult : >60 mL/mi n/1.7 3 m2 Chron ic Kidne y Disea se: 15-60 mL/mi n/1.7 3 m2 Kidne y Failu re: <15/m L/min /1.73 m2 www.n iddk. nih.g ov The MDRD study equat ion has not been valid ated in child jorje <18 years of age; pregn ant women ; the elder ly >85 years of age; or in some racia l or ethni c subgr oups, such as [facility] nics. Outsi de the valid ated ant eters , estim ated GFR is less accur ate, requi ring clini chinedu judgm ent on a case- by-ca se basis . Clini chinedu inter preta tion for other races and ages must be made by the clini alexander. The MDRD study equat ion has not been valid ated for the evalu ation of serum creat inine relat ed to nutri reza l statu s or medic ation usage . For perso ns <18 years of age, a pedia tric GFR calcu lator is avail able on the F websi te: https ://toni reese.o rg/pr ofess ional s/kdo qi/gf r_cal culat or Not Available [facility] (Lab) [address] [place], [address], 03/11/2023 12:11:03 03/11/20 23 03/11/2023 COMPR EHENS DAT METAB OLIC PANEL alkaline phosphatase 114 U/L 38-126 Not Available [facility] (Lab) [address] [place], [address], 03/11/2023 12:11:03 03/11/20 23 03/11/2023 COMPR EHENS DAT METAB OLIC PANEL alanine aminotransfe rase 12 U/L 0-35 Not Available [facility] (Lab) [address] [place], [address], 03/11/2023 12:11:03 03/11/20 23 03/11/2023 COMPR EHENS DAT METAB OLIC PANEL aspartate aminotransfe rase 19 U/L 15-37 Not Available [facility] (Lab) [address] [place], [address], 03/11/2023 12:11:03 03/11/20 23 03/11/2023 COMPR EHENS DAT METAB OLIC PANEL bilirubin, total 0.40 mg/dL 0.20-1 .30 Not Available [facility] (Lab) [address] [place], [address], 03/11/2023 12:11:03 03/11/20 23 03/11/2023 COMPR EHENS DAT METAB OLIC PANEL calcium 9.2 mg/dL 8.4-10 .2 Not Available [facility] (Lab) [address] [facility] [place], [address], 03/11/2023 12:11:03 03/11/20 23 03/11/2023 COMPR EHENS DAT METAB OLIC PANEL total protein 6.8 g/dL 6.3-8. 2 Not Available [facility] (Lab) [address] [place], [address], 03/11/2023 12:11:03 03/11/2003/11/2023 COMPR EHENS DAT METAB OLIC PANEL albumin 4.0 g/dL 3.4-5. 0 Not Available [facility] (Lab) [address] [place], [address], 03/11/2023 12:11:03 03/11/20 23 03/11/2023 COMPR EHENS DAT METAB OLIC PANEL globulin 2.8 g/dL 2.6-4. 2 Not Available [facility] (Lab) [address] [place], [address], 03/11/2023 12:11:03 03/11/2003/11/2023 COMPR EHENS DAT METAB OLIC PANEL A/G ratio 1.4 ratio 1.0-2. 0 Not Available [facility] (Lab) [address] [place], [address], 03/11/2023 12:11:03 03/11/2003/11/2023 LIPID PANEL cholesterol 153 mg/dL 140-19 9 NIH JOSELITO NSUS RECOM MENDA TION FOR DENG STERO L: ADULT CHILD LOW RISK: <200 <170 BORDE RLINE : <200- 239 ----- HIGH RISK: >240 >200 Not Available [facility] (Lab) [address] [place], [address], 03/11/2023 12:11:23 03/11/2003/11/2023 LIPID PANEL triglyceride s 75 mg/dL 0-150 NIH JOSELITO NSUS REPOR T RECOM MENDA TION FOR TRIGL YCERI HAILEY: ADULT CHILD LOW RISK: <150 ----- BODER LINE: 150-1 99 ----- HIGH RISK: >200 ----- Not Available [facility] (Lab) [address] [place], [address], 03/11/2023 12:11:23 03/11/2003/11/2023 LIPID PANEL HDL cholesterol 62 mg/dL 40- Not Available [facility] (Lab) [address] [facility] [place], [address], 03/11/2023 12:11:23 03/11/2003/11/2023 LIPID PANEL LDL cholesterol, calculated 76 mg/dL 0-130 NIH JOSELITO NSUS REPOR T RECOM MENDA TIONS FOR LDL: ADULT CHILD LOW RISK <130 <110 (OPTI MAL LDL) <100 ----- BORDE RLINE : 130-1 59 ----- HIGH RISK: >160 >130 A TRIGL YCERI DE RESUL T >400 INVAL IDATE S THE CALCU LATIO N FOR LDL FRACT IONAT ION - THE LDL RESUL T WILL NOT BE REPOR EMILY. Not Available [facility] (Lab) [address] [place], [address], 03/11/2023 12:11:23 03/11/20 23 03/11/2023 MICRO ALBUM N RNDM W/CRE AT RATIO ur creat 42.33 mg/dL REFER ENCE RANGE NOT ESTAB LISHE D FOR RANDO M URINE CREAT ININE Not Available [facility] (Lab) [address] [place], [address], 03/11/2023 12:54:45 03/11/20 23 03/11/2023 MICRO ALBUM N RNDM W/CRE AT RATIO microalbumin , urine <6.0 mg/L 0.0-16 .6 Not Available [facility] (Lab) [address] [place], [address], 03/11/2023 12:54:45 03/11/20 23 03/11/2023 HEMOG LOBIN A1C HA1C 5.3 % 4.0-6. 0 Diabe ankush Scree victor manuel Crite jessy: <5.7% Consi stent with absen ce of diabe ankush 5.7-6 .4% Consi stent with incre ased risk for diabe ankush (pred iabet es) >OR=6 .5% Consi stent with diabe ankush REFER ENCE: Diabe ankush Care 2016, 39(Sarah ppl.1 ):s13 -s[address] [facility] (Lab) [address] [place], [address], 03/11/2023 13:46:32 07/05/2007/05/2023 CBC/C OMPLE TE BLD COUNT W/DIF F white blood cells 6.9 x10'3 /uL 4.2-[address] [facility] (Lab) [address] [place], [address], 07/05/2023 13:01:23 07/05/2007/05/2023 CBC/C OMPLE TE BLD COUNT W/DIF F red blood cells 4.47 x10'6 /uL 3.80-5 .20 Not Available [facility] (Lab) [address] [place], [address], 07/05/2023 13:01:23 07/05/2007/05/2023 CBC/C OMPLE TE BLD COUNT W/DIF F hemoglobin 13.2 g/dL 12.0-1 5.6 Not Available [facility] (Lab) [address] [place], [address], 07/05/2023 13:01:23 07/05/2007/05/2023 CBC/C OMPLE TE BLD COUNT W/DIF F hematocrit 40.3 % 35.7-4 5.7 Not Available [facility] (Lab) [address] [place], [address], 07/05/2023 13:01:23 07/05/2007/05/2023 CBC/C OMPLE TE BLD COUNT W/DIF F mean red cell volume 90.2 fL 82.0-9 9.0 Not Available [facility] (Lab) [address] [place], [address], 07/05/2023 13:01:23 07/05/2007/05/2023 CBC/C OMPLE TE BLD COUNT W/DIF F mean red cell hemoglobin 29.5 pg 27.0-[address] [facility] (Lab) [address] [place], [address], 07/05/2023 13:01:23 07/05/2007/05/2023 CBC/C OMPLE TE BLD COUNT W/DIF F mean RBC HGB concentratio n 32.8 g/dL 31.0-[address] [facility] (Lab) [address] [facility] [place], [address], 07/05/2023 13:01:07/05/2007/05/2023 CBC/C OMPLE TE BLD COUNT W/DIF F red cell distribution width 13.6 % 11.8-1 5.5 Not Available [facility] (Lab) [address] [place], [address], 07/05/2023 13:01:07/05/2007/05/2023 CBC/C OMPLE TE BLD COUNT W/DIF F platelets 253 x10'3 /uL 150-40 0 Not Available [facility] (Lab) [address] [place], [address], 07/05/2023 13:01:07/05/2007/05/2023 CBC/C OMPLE TE BLD COUNT W/DIF F mean platelet volume 11.8 fL 9.0-12 .4 Not Available [facility] (Lab) [address] [place], [address], 07/05/2023 13:01:07/05/2007/05/2023 CBC/C OMPLE TE BLD COUNT W/DIF F neutrophils 70.5 % 39.0-7 2.0 Not Available [facility] (Lab) [address] [place], [address], 07/05/2023 13:01:07/05/2007/05/2023 CBC/C OMPLE TE BLD COUNT W/DIF F lymphocytes 18.9 % 16.0-4 7.0 Not Available [facility] (Lab) [address] [place], [address], 07/05/2023 13:01:07/05/2007/05/2023 CBC/C OMPLE TE BLD COUNT W/DIF F monocytes 6.1 % 5.0-12 .0 Not Available [facility] (Lab) [address] [place], [address], 07/05/2023 13:01:07/05/2007/05/2023 CBC/C OMPLE TE BLD COUNT W/DIF F eosinophils 3.5 % 1.0-7. 0 Not Available [facility] (Lab) [address] [place], [address], 07/05/2023 13:01:07/05/2007/05/2023 CBC/C OMPLE TE BLD COUNT W/DIF F basophils 0.6 % 0.0-2. 0 Not Available [facility] (Lab) [address] [place], [address], 07/05/2023 13:01:07/05/2007/05/2023 CBC/C OMPLE TE BLD COUNT W/DIF F immature granulocytes 0.4 % 0.00-0 .50 Not Available [facility] (Lab) [address] [place], [address], 07/05/2023 13:01:07/05/2007/05/2023 CBC/C OMPLE TE BLD COUNT W/DIF F neutrophils, absolute count 4.84 x10'3 /uL 1.5-8. 0 Not Available [facility] (Lab) [address] [place], [address], 07/05/2023 13:01:07/05/2007/05/2023 CBC/C OMPLE TE BLD COUNT W/DIF F lymphocytes, absolute count 1.30 x10'3 /uL 1.07-3 .43 Not Available [facility] (Lab) [address] [place], [address], 07/05/2023 13:01:07/05/2007/05/2023 CBC/C OMPLE TE BLD COUNT W/DIF F monocytes, absolute count 0.42 x10'3 /uL 0.29-0 .99 Not Available [facility] (Lab) [address] [place], [address], 07/05/2023 13:01:07/05/2007/05/2023 CBC/C OMPLE TE BLD COUNT W/DIF F eosinophils, absolute count 0.24 x10'3 /uL 0.02-0 .53 Not Available [facility] (Lab) [address] [place], [address], 07/05/2023 13:01:07/05/2007/05/2023 CBC/C OMPLE TE BLD COUNT W/DIF F basophils, absolute count 0.04 x10'3 /uL 0.01-0 .08 Not Available [facility] (Lab) [address] [place], [address], 07/05/2023 13:01:07/05/2007/05/2023 CBC/C OMPLE TE BLD COUNT W/DIF F immature granulocytes ,absolute 0.03 x10'3 /uL 0.00-0 .05 Not Available [facility] (Lab) [address] [place], [address], 07/05/2023 13:01:23 07/05/2007/05/2023 CBC/C OMPLE TE BLD COUNT W/DIF F nucleated red blood cells 0.0 % -0 Not Available [facility] (Lab) [address] [place], [address], 07/05/2023 13:01:23 07/05/2007/05/2023 CBC/C OMPLE TE BLD COUNT W/DIF F NRBC# 0.00 x10'3 /uL Not Available [facility] (Lab) [address] [place], [address], 07/05/2023 13:01:23 07/05/2007/05/2023 LIPID PANEL cholesterol 170 mg/dL 140-19 9 NIH JOSELITO NSUS RECOM MENDA TION FOR DENG STERO L: ADULT CHILD LOW RISK: <200 <170 BORDE RLINE : <200- 239 ----- HIGH RISK: >240 >200 Not Available [facility] (Lab) [address] [place], [address], 07/05/2023 13:25:41 07/05/2007/05/2023 LIPID PANEL triglyceride s 105 mg/dL 0-150 NIH JOSELITO NSUS REPOR T RECOM MENDA TION FOR TRIGL YCERI HAILEY: ADULT CHILD LOW RISK: <150 ----- BODER LINE: 150-1 99 ----- HIGH RISK: >200 ----- Not Available [facility] (Lab) [address] [place], [address], 07/05/2023 13:25:41 07/05/2007/05/2023 LIPID PANEL HDL cholesterol 59 mg/dL 40- Not Available [facility] (Lab) [address] [place], [address], 07/05/2023 13:25:41 07/05/2007/05/2023 LIPID PANEL LDL cholesterol, calculated 90 mg/dL 0-130 NIH JOSELITO NSUS REPOR T RECOM MENDA TIONS FOR LDL: ADULT CHILD LOW RISK <130 <110 (OPTI MAL LDL) <100 ----- BORDE RLINE : 130-1 59 ----- HIGH RISK: >160 >130 A TRIGL YCERI DE RESUL T >400 INVAL IDATE S THE CALCU LATIO N FOR LDL FRACT IONAT ION - THE LDL RESUL T WILL NOT BE REPOR EMILY. Not Available [facility] (Lab) [address] [place], [address], 07/05/2023 13:25:41 07/05/20 23 07/05/2023 COMPR EHENS DAT METAB OLIC PANEL sodium 139 mmol/ L 137-[address] [facility] (Lab) [address] [place], [address], 07/05/2023 13:25:48 07/05/20 23 07/05/2023 COMPR EHENS DAT METAB OLIC PANEL potassium 4.3 mmol/ L 3.5-5. 1 Not Available [facility] (Lab) [address] [place], [address], 07/05/2023 13:25:48 07/05/20 23 07/05/2023 COMPR EHENS DAT METAB OLIC PANEL chloride 103 mmol/ L 98-107 Not Available [facility] (Lab) [address] [place], [address], 07/05/2023 13:25:48 07/05/20 23 07/05/2023 COMPR EHENS DAT METAB OLIC PANEL carbon dioxide 29 mmol/ L 22-[address] [facility] (Lab) [address] [place], [address], 07/05/2023 13:25:48 07/05/20 23 07/05/2023 COMPR EHENS DAT METAB OLIC PANEL anion gap 11.3 mmol/ L 14-22 low Not Available [facility] (Lab) [address] [place], [address], 07/05/2023 13:25:48 07/05/20 23 07/05/2023 COMPR EHENS DAT METAB OLIC PANEL glucose 136 mg/dL 70-99 high Not Available [facility] (Lab) [address] [facility] [place], [address], 07/05/2023 13:25:48 07/05/2007/05/2023 COMPR EHENS DAT METAB OLIC PANEL BUN 14 mg/dL 8-19 Not Available [facility] (Lab) [address] [place], [address], 07/05/2023 13:25:48 07/05/2007/05/2023 COMPR EHENS DAT METAB OLIC PANEL creatinine 0.79 mg/dL 0.66-1 .25 Not Available [facility] (Lab) [address] [place], [address], 07/05/2023 13:25:48 07/05/2007/05/2023 COMPR EHENS DAT METAB OLIC PANEL GFR >60 Refer ence Range : Ashton ge GFR Healt hy Adult : >60 mL/mi n/1.7 3 m2 Chron ic Kidne y Disea se: 15-60 mL/mi n/1.7 3 m2 Kidne y Failu re: <15/m L/min /1.73 m2 www.n iddk. nih.g ov The MDRD study equat ion has not been valid ated in child jorje <18 years of age; pregn ant women ; the elder ly >85 years of age; or in some racia l or ethni c subgr oups, such as [facility] nics. Outsi de the valid ated ant eters , estim ated GFR is less accur ate, requi ring clini chinedu judgm ent on a case- by-ca se basis . Clini chinedu inter preta tion for other races and ages must be made by the clini alexander. The MDRD study equat ion has not been valid ated for the evalu ation of serum creat inine relat ed to nutri reza l statu s or medic ation usage . For perso ns <18 years of age, a pedia tric GFR calcu lator is avail able on the [facility] websi te: https ://toni martini.kid hugh.o rg/pr ofess ional s/kdo qi/gf r_cal culat or Not Available [facility] (Lab) [address] [place], [address], 07/05/2023 13:25:48 07/05/20 23 07/05/2023 COMPR EHENS DAT METAB OLIC PANEL alkaline phosphatase 124 U/L 38-126 Not Available [facility] (Lab) [address] [place], [address], 07/05/2023 13:25:48 07/05/20 23 07/05/2023 COMPR EHENS DAT METAB OLIC PANEL alanine aminotransfe rase 13 U/L 0-35 Not Available [facility] (Lab) [address] [place], [address], 07/05/2023 13:25:48 07/05/20 23 07/05/2023 COMPR EHENS DAT METAB OLIC PANEL aspartate aminotransfe rase 16 U/L 15-37 Not Available [facility] (Lab) [address] [place], [address], 07/05/2023 13:25:48 07/05/20 23 07/05/2023 COMPR EHENS DAT METAB OLIC PANEL bilirubin, total 0.30 mg/dL 0.20-1 .30 Not Available [facility] (Lab) [address] [place], [address], 07/05/2023 13:25:48 07/05/20 23 07/05/2023 COMPR EHENS DAT METAB OLIC PANEL calcium 8.7 mg/dL 8.4-10 .2 Not Available [facility] (Lab) [address] [place], [address], 07/05/2023 13:25:48 07/05/20 23 07/05/2023 COMPR EHENS DAT METAB OLIC PANEL total protein 6.8 g/dL 6.3-8. 2 Not Available [facility] (Lab) [address] [place], [address], 07/05/2023 13:25:48 07/05/20 23 07/05/2023 COMPR EHENS DAT METAB OLIC PANEL albumin 4.2 g/dL 3.4-5. 0 Not Available [facility] (Lab) [address] [place], [address], 07/05/2023 13:25:48 07/05/20 23 07/05/2023 COMPR EHENS DAT METAB OLIC PANEL globulin 2.6 g/dL 2.6-4. 2 Not Available [facility] (Lab) [address] [place], [address], 07/05/2023 13:25:48 07/05/20 23 07/05/2023 COMPR EHENS DAT METAB OLIC PANEL A/G ratio 1.6 ratio 1.0-2. [address] [facility] (Lab) [address] [place], [address], 07/05/2023 13:25:48 07/05/2007/05/2023 HEMOG LOBIN A1C HA1C 5.4 % 4.0-6. 0 Diabe ankush Scree victor manuel Crite jessy: <5.7% Consi stent with absen ce of diabe ankush 5.7-6 .4% Consi stent with incre ased risk for diabe ankush (pred iabet es) >OR=6 .5% Consi stent with diabe ankush REFER ENCE: Diabe ankush Care 2016, 39(Sarah ppl.1 ):s13 -s22 Not Available [facility] (Lab) [address] [place], [address], 07/05/2023 14:45:31 11/08/19 24 11/08/2023 CBC/C OMPLE TE BLD COUNT W/DIF F white blood cells 5.1 x10'3 /uL 4.2-10 .8 Not Available [facility] (Lab) [address] [place], [address], 11/08/2023 10:02:30 11/08/19 24 11/08/2023 CBC/C OMPLE TE BLD COUNT W/DIF F red blood cells 4.46 x10'6 /uL 3.80-5 .20 Not Available [facility] (Lab) [address] [place], [address], 11/08/2023 10:02:30 11/08/19 24 11/08/2023 CBC/C OMPLE TE BLD COUNT W/DIF F hemoglobin 13.2 g/dL 12.0-1 5.6 Not Available [facility] (Lab) [address] [place], [address], 11/08/2023 10:02:30 11/08/19 24 11/08/2023 CBC/C OMPLE TE BLD COUNT W/DIF F hematocrit 40.1 % 35.7-4 5.7 Not Available [facility] (Lab) [address] [place], [address], 11/08/2023 10:02:30 11/08/19 24 11/08/2023 CBC/C OMPLE TE BLD COUNT W/DIF F mean red cell volume 89.9 fL 82.0-9 9.0 Not Available [facility] (Lab) [address] [place], [address], 11/08/2023 10:02:30 11/08/19 24 11/08/2023 CBC/C OMPLE TE BLD COUNT W/DIF F mean red cell hemoglobin 29.6 pg 27.0-3 3.0 Not Available [facility] (Lab) [address] [place], [address], 11/08/2023 10:02:30 11/08/19 24 11/08/2023 CBC/C OMPLE TE BLD COUNT W/DIF F mean RBC HGB concentratio n 32.9 g/dL 31.0-3 6.0 Not Available [facility] (Lab) [address] [place], [address], 11/08/2023 10:02:30 11/08/19 24 11/08/2023 CBC/C OMPLE TE BLD COUNT W/DIF F red cell distribution width 13.8 % 11.8-1 5.5 Not Available [facility] (Lab) [address] [place], [address], 11/08/2023 10:02:30 11/08/19 24 11/08/2023 CBC/C OMPLE TE BLD COUNT W/DIF F platelets 239 x10'3 /uL 150-40 0 Not Available [facility] (Lab) [address] [place], [address], 11/08/2023 10:02:30 11/08/19 24 11/08/2023 CBC/C OMPLE TE BLD COUNT W/DIF F mean platelet volume 11.4 fL 9.0-12 .4 Not Available [facility] (Lab) [address] [place], [address], 11/08/2023 10:02:30 11/08/19 24 11/08/2023 CBC/C OMPLE TE BLD COUNT W/DIF F neutrophils 65.4 % 39.0-7 2.0 Not Available [facility] (Lab) [address] [place], [address], 11/08/2023 10:02:30 11/08/19 24 11/08/2023 CBC/C OMPLE TE BLD COUNT W/DIF F lymphocytes 23.3 % 16.0-4 7.0 Not Available [facility] (Lab) [address] [place], [address], 11/08/2023 10:02:30 11/08/19 24 11/08/2023 CBC/C OMPLE TE BLD COUNT W/DIF F monocytes 7.1 % 5.0-12 .0 Not Available [facility] (Lab) [address] [place], [address], 11/08/2023 10:02:30 11/08/1911/08/2023 CBC/C OMPLE TE BLD COUNT W/DIF F eosinophils 3.2 % 1.0-7. 0 Not Available [facility] (Lab) [address] [place], [address], 11/08/2023 10:02:30 11/08/1911/08/2023 CBC/C OMPLE TE BLD COUNT W/DIF F basophils 0.8 % 0.0-2. 0 Not Available [facility] (Lab) [address] [place], [address], 11/08/2023 10:02:30 11/08/1911/08/2023 CBC/C OMPLE TE BLD COUNT W/DIF F immature granulocytes 0.2 % 0.00-0 .50 Not Available [facility] (Lab) [address] [place], [address], 11/08/2023 10:02:30 11/08/1911/08/2023 CBC/C OMPLE TE BLD COUNT W/DIF F neutrophils, absolute count 3.32 x10'3 /uL 1.5-8. 0 Not Available [facility] (Lab) [address] [place], [address], 11/08/2023 10:02:30 11/08/1911/08/2023 CBC/C OMPLE TE BLD COUNT W/DIF F lymphocytes, absolute count 1.18 x10'3 /uL 1.07-3 .43 Not Available [facility] (Lab) [address] [place], [address], 11/08/2023 10:02:30 11/08/1911/08/2023 CBC/C OMPLE TE BLD COUNT W/DIF F monocytes, absolute count 0.36 x10'3 /uL 0.29-0 .99 Not Available [facility] (Lab) [address] [place], [address], 11/08/2023 10:02:30 11/08/19 24 11/08/2023 CBC/C OMPLE TE BLD COUNT W/DIF F eosinophils, absolute count 0.16 x10'3 /uL 0.02-0 .53 Not Available [facility] (Lab) [address] [place], [address], 11/08/2023 10:02:30 11/08/19 24 11/08/2023 CBC/C OMPLE TE BLD COUNT W/DIF F basophils, absolute count 0.04 x10'3 /uL 0.01-0 .08 Not Available [facility] (Lab) [address] [place], [address], 11/08/2023 10:02:30 11/08/19 24 11/08/2023 CBC/C OMPLE TE BLD COUNT W/DIF F immature granulocytes ,absolute 0.01 x10'3 /uL 0.00-0 .05 Not Available [facility] (Lab) [address] [place], [address], 11/08/2023 10:02:30 11/08/19 24 11/08/2023 CBC/C OMPLE TE BLD COUNT W/DIF F nucleated red blood cells 0.0 % -0 Not Available [facility] (Lab) [address] [place], [address], 11/08/2023 10:02:30 11/08/19 24 11/08/2023 CBC/C OMPLE TE BLD COUNT W/DIF F NRBC# 0.00 x10'3 /uL Not Available [facility] (Lab) [address] [place], [address], 11/08/2023 10:02:30 11/08/19 24 11/08/2023 COMPR EHENS DAT METAB OLIC PANEL sodium 138 mmol/ L 137-14 5 Not Available [facility] (Lab) [address] [place], [address], 11/08/2023 12:01:22 11/08/19 24 11/08/2023 COMPR EHENS DAT METAB OLIC PANEL potassium 4.2 mmol/ L 3.5-5. [address] [facility] (Lab) [address] [place], [address], 11/08/2023 12:01:22 11/08/19 24 11/08/2023 COMPR EHENS DAT METAB OLIC PANEL chloride 104 mmol/ L 98-107 Not Available [facility] (Lab) [address] [place], [address], 11/08/2023 12:01:22 11/08/19 24 11/08/2023 COMPR EHENS DAT METAB OLIC PANEL carbon dioxide 28 mmol/ L 22-30 Not Available [facility] (Lab) [address] [place], [address], 11/08/2023 12:01:22 11/08/19 24 11/08/2023 COMPR EHENS DAT METAB OLIC PANEL anion gap 10.2 mmol/ L 14-22 low Not Available [facility] (Lab) [address] [place], [address], 11/08/2023 12:01:22 11/08/19 24 11/08/2023 COMPR EHENS DAT METAB OLIC PANEL glucose 111 mg/dL 70-99 high Not Available [facility] (Lab) [address] [place], [address], 11/08/2023 12:01:22 11/08/19 24 11/08/2023 COMPR EHENS DAT METAB OLIC PANEL BUN 13 mg/dL 8-19 Not Available [facility] (Lab) [address] [place], [address], 11/08/2023 12:01:22 11/08/19 24 11/08/2023 COMPR EHENS DAT METAB OLIC PANEL creatinine 0.71 mg/dL 0.66-1 .25 Not Available [facility] (Lab) [address] [place], [address], 11/08/2023 12:01:22 11/08/19 24 11/08/2023 COMPR EHENS DAT METAB OLIC PANEL GFR >60 Refer ence Range : Ashton ge GFR Healt hy Adult : >60 mL/mi n/1.7 3 m2 Chron ic Kidne y Disea se: 15-60 mL/mi n/1.7 3 m2 Kidne y Failu re: <15/m L/min /1.73 m2 www.n iddk. nih.g ov The MDRD study equat ion has not been valid ated in child jorje <18 years of age; pregn ant women ; the elder ly >85 years of age; or in some racia l or ethni c subgr oups, such as [facility] n[facility]. Outsi de the valid ated ant eters , estim ated GFR is less accur ate, requi ring clini chinedu judgm ent on a case- by-ca se basis . Clini chinedu inter preta tion for other races and ages must be made by the clini alexander. The MDRD study equat ion has not been valid ated for the evalu ation of serum creat inine relat ed to nutri reza l statu s or medic ation usage . For perso ns <18 years of age, a pedia tric GFR calcu lator is avail able on the [facility] websi te: https ://toni reese.harish shaikh/rufus andersenal s/michaelo qi/gf r_cal culat or Not Available [facility] (Lab) [address] [place], [address], 11/08/2023 12:01:22 11/08/19 24 11/08/2023 COMPR EHENS DAT METAB OLIC PANEL alkaline phosphatase 101 U/L 38-126 Not Available [facility] (Lab) [address] [place], [address], 11/08/2023 12:01:22 11/08/19 24 11/08/2023 COMPR EHENS DAT METAB OLIC PANEL alanine aminotransfe rase 10 U/L 0-35 Not Available [facility] (Lab) [address] [place], [address], 11/08/2023 12:01:22 11/08/19 24 11/08/2023 COMPR EHENS DAT METAB OLIC PANEL aspartate aminotransfe rase 18 U/L 15-37 Not Available [facility] (Lab) [address] [place], [address], 11/08/2023 12:01:22 11/08/19 24 11/08/2023 COMPR EHENS DAT METAB OLIC PANEL bilirubin, total 0.50 mg/dL 0.20-1 .30 Not Available [facility] (Lab) [address] [place], [address], 11/08/2023 12:01:22 11/08/19 24 11/08/2023 COMPR EHENS DAT METAB OLIC PANEL calcium 9.5 mg/dL 8.4-10 .2 Not Available [facility] (Lab) [address] [place], [address], 11/08/2023 12:01:22 11/08/19 24 11/08/2023 COMPR EHENS DAT METAB OLIC PANEL total protein 6.9 g/dL 6.3-8. 2 Not Available [facility] (Lab) [address] [place], [address], 11/08/2023 12:01:22 11/08/19 24 11/08/2023 COMPR EHENS DAT METAB OLIC PANEL albumin 4.2 g/dL 3.4-5. 0 Not Available [facility] (Lab) [address] [place], [address], 11/08/2023 12:01:22 11/08/19 24 11/08/2023 COMPR EHENS DAT METAB OLIC PANEL globulin 2.7 g/dL 2.6-4. 2 Not Available [facility] (Lab) [address] [place], [address], 11/08/2023 12:01:22 11/08/19 24 11/08/2023 COMPR EHENS DAT METAB OLIC PANEL A/G ratio 1.6 ratio 1.0-2. 0 Not Available [facility] (Lab) [address] [place], [address], 11/08/2023 12:01:22 11/08/19 24 11/08/2023 LIPID PANEL cholesterol 150 mg/dL 140-19 9 NIH JOSELITO NSUS RECOM MENDA TION FOR DENG STERO L: ADULT CHILD LOW RISK: <200 <170 BORDE RLINE : <200- 239 ----- HIGH RISK: >240 >200 Not Available [facility] (Lab) [address] [place], [address], 11/08/2023 12:01:25 11/08/1911/08/2023 LIPID PANEL triglyceride s 69 mg/dL 0-150 NIH JOSELITO NSUS REPOR T RECOM MENDA TION FOR TRIGL YCERI HAILEY: ADULT CHILD LOW RISK: <150 ----- BODER LINE: 150-1 99 ----- HIGH RISK: >200 ----- Not Available [facility] (Lab) [address] [place], [address], 11/08/2023 12:01:25 11/08/19 24 11/08/2023 LIPID PANEL HDL cholesterol 59 mg/dL 40- Not Available [facility] (Lab) [address] [place], [address], 11/08/2023 12:01:25 11/08/19 24 11/08/2023 LIPID PANEL LDL cholesterol, calculated 77 mg/dL 0-130 NIH JOSELITO NSUS REPOR T RECOM MENDA TIONS FOR LDL: ADULT CHILD LOW RISK <130 <110 (OPTI MAL LDL) <100 ----- BORDE RLINE : 130-1 59 ----- HIGH RISK: >160 >130 A TRIGL YCERI DE RESUL T >400 INVAL IDATE S THE CALCU LATIO N FOR LDL FRACT IONAT ION - THE LDL RESUL T WILL NOT BE REPOR EMILY. Not Available [facility] (Lab) [address] [place], [address], 11/08/2023 12:01:25 11/08/19 24 11/08/2023 HEMOG LOBIN A1C HA1C 5.0 % 4.0-6. 0 Diabe ankush Scree victor manuel Crite jessy: <5.7% Consi stent with absen ce of diabe ankush 5.7-6 .4% Consi stent with incre ased risk for diabe ankush (pred iabet es) >OR=6 .5% Consi stent with diabe ankush REFER ENCE: Diabe ankush Care 2016, 39(Sarah ppl.1 ):s13 -s22 Not Available [facility] (Lab) [address] [place], [address], 11/08/2023 15:14:08 10/15/20 22 10/15/2022 CT, head, w/o contr ast [facility] [address] [place] [address] Patien t Name: SALMA SHIELDS Access ion #: [id number] Sex: F : 1964 3 Locati on: RAD Attend ing Physic judy: JOEL PEREZ Orderi Physic judy: JOEL PEREZ Exam Date: 2021 1:07 PM Exam Name: CT HEAD WO Admitt ing Diagno sis(es ): RADIOL OGY REPORT - FINAL EXAM: CT HEAD WO HISTOR Y: dizzin ess and giddin ess COMPAR ZOE: None TECHNI QUE: Noncon trast axial CT images of the head were perfor med. Sagitt al and jorgensen l reform atted images were obtain ed. This CT exam was perfor med using 1 or more of the follow ing dose reduct ion techni ques: Automa emily exposu re contro l, adjust ment of the mA and/or kv accord ing to patien t size, or the use of iterat dat recons tructi on techni ques. Page 1 of 2 [facility] Patien t Name: JOSE A SHIELDSI L Access ion #: [id number] Sex: F : 1964 3 Exam Date: 2021 1:07 PM Exam Name: CT HEAD WO Admitt ing Diagno sis(es ): FINDIN GS: Brain: The mayes-w harvey matter differ entiat ion is within normal limits . There is not eviden ce of edema, enceph alomal acic residu als, residu als of infarc tion, hemorr kanika, midlin e shift, or sulcal efface ment. Ventri cles: Midlin e, normal size. Vibration Engineer ior fossa: Unrema rkable Mastoi d air cells: Aerate d bilate rally. Sinuse s: Unrema rkable as visual ized. Soft tissue s: Unrema rkable . IMPRES DEQUAN: No CT eviden ce of an acute intrac ranial proces s. Create d and electr onical ly signed by: Huang bender MD Signed Date: 2021 1:18 PM (CT) Dictat ed by: Huang bender MD DD: 2021 1:18 PM (CT) DT: 2021 1:18 PM (CT) Page 2 of 2 [id number] [facility] (Imaging) [address] [place], [address], 12/29/2022 05:04:56 08/29/20 23 08/29/2023 MAMMO , scree victor manuel, digit al, bilat eral No observ ation record ed. [id number] [place], [address], 10/01/2023 11:18:35 Result Notes None recorded. Problems Name Problem SNOMED Code Status Onset Date Resolution Date Notes Provider Name and Address Organization Details Recorded Time Nausea and vomiting 81716022 Active 2021 Not Available [facility] 4 04:54:48 Tear of meniscus of knee 641713975 Active 2020 Not Available [facility] 4 04:54:48 Pure hypercholeste rolemia 602797666 Active Not Available [facility] 4 04:54:48 Type 2 diabetes mellitus without complication 012809056 Active Not Available [facility] 4 04:54:48 Dizziness 328883873 Active 2021 Not Available [facility] 4 04:54:48 Platelet count below reference range 084068894 Active Not Available [facility] 4 04:54:48 Easy bruising 272854909 Active 2022 Not Available [facility] 4 04:54:48 Laryngitis 75871688 Active Not Available [facility] 4 04:54:48 Anxiety 71644217 Active 2019 Not Available [facility] 4 04:54:48 Thrombocytosi s 6767756 Active Not Available [facility] 4 04:54:48 Palpitations 07050207 Active Not Available [facility] 4 04:54:48 Problem Notes None recorded. Procedures Surgical History Date Name Laterality Status Provider Name and Address Organization Details Recorded Time 10/08/20 21 KNEE ARTHROSCOPY (SURG) completed Not Available [facility] 12/29/2022 05:04:51 Hysterectomy completed Not Available [facility] 12/29/2022 04:43:55 Dilation and curettage completed Not Available [facility] 12/29/2022 04:43:55 I & d of vulva/perineum completed Not Available [facility] 12/29/2022 04:43:55 Imaging Results Imaging Date Name Status LastModified by Organiz ation Details LastModified Time 10/15/2022 CT, head, w/o contrast completed [id number] [facility] (Imaging) [address] [place], [address], 12/29/2022 05:04:56 08/29/2023 MAMMO, screening, digital, bilateral completed [email or web address], [address], 10/01/2023 11:18:35 Procedure Notes None recorded. Medical Equipment None Reported. Allergies Allergen ID Allergen Name Allergen Category Reaction Reaction Severity Criticality Documentation Date Start Date Code Code System Note Provider Name and Address Organization Details Recorded Time 8291 Substance with sulfonami de structure and antibacte rial mechanism of action (substanc e) medicatio n Not available Not available Not available 12/29/2022 01435 8003 SNOMED Not Available [facility] 3 05:04:28 8292 Skelaxin medicatio n Not available Not available Not available 12/29/2022 33302 5 RxNorm Not Available [facility] 3 05:04:28 8293 Product containin g penicilli n (product) medicatio n Not available Not available Not available 12/29/2022 89760 8001 SNOMED Not Available [facility] 3 05:04:28 Medications Name Sig Start Date Stop Date Status Note LastModified by Organization Details LastModified Time hydrocodo ne 7.5 mg-ibupro fen 200 mg tablet 10/12 completed Not Available Not Available Not Available azithromy yogi 250 mg tablet ud 04/05 completed Not Available Not Available Not Available hydrocodo ne 5 mg-acetam inophen 325 mg tablet 12/29 completed Not Available Not Available Not Available meloxicam 15 mg tablet TAKE 1 TABLET BY MOUTH EVERY DAY active Not Available Not Available No t Available ondansetr on HCl 4 mg tablet Take 1 tablet 3 times a day by oral route as needed. 11/25 completed Not Available Not Available Not Available sertralin e 100 mg tablet TAKE 1 TABLET DAILY active Not Available Not Available No t Available clindamyc in HCl 150 mg capsule 10/12 completed Not Available Not Available Not Available Kenalog 10 mg/mL suspensio n for injection In office injectio n administ ered by the provider 04/02 completed NDC: [id number] 02-17 Not Available Not Available Not Available metformin 1,000 mg tablet TAKE 1 TABLET BY MOUTH TWICE A DAY active Not Available Not Available No t Available methylpre dnisolone 4 mg tablets in a dose pack TAKE 6 TABLETS ON DAY 1 DIRECTED ON PACKAGE AND DECREASE BY 1 TAB EACH DAY FOR A TOTAL OF 6 DAYS 11/25 completed Not Available Not Available Not Available fluticaso ne propionat e 50 mcg/actua tion nasal spray,b[facility] [employer] [place] 1 spray every day by intranas al route. 04/02 completed Not Available Not Available Not Available sertralin e 50 mg tablet TAKE 1 TABLET DAILY active Not Available Not Available No t Available diazepam 5 mg tablet TAKE 1/2 OF A TABLET BY MOUTH TWICE A DAY 11/25 completed Not Available Not Available Not Available rosuvasta tin 10 mg tablet TAKE 1 TABLET BY MOUTH EVERY DAY active Not Available Not Available No t Available rosuvasta tin 20 mg tablet TAKE 1 TABLET BY MOUTH EVERY DAY 2023 active Not Available Not Available Not Avai lable famotidin e OTC 2020 active Not Available Not Available Not Avai lable Claritin 10/15 completed Not Available Not Available Not Available Vitamin D3 04/02 completed Not Available Not Available Not Available apple cider vinegar 08/26 completed Not Available Not Available Not Available lidocaine (PF) 10 mg/mL (1 %) injection solution In office injectio n administ ered by the provider 04/02 completed ND: [id number] Not Available Not Available Not Available Ozempic 0.25 mg or 0.5 mg (2 mg/1.5 mL) subcutane ous pen injector INJECT 0.25 MG UNDER THE SKIN ONCE A WEEK X4 WEEKS, THEN INCREASE TO 0.5 MG ONCE WEEKLY 03/24 completed increase d dose to 1mg Not Available Not Available Not Available Afluria Qd 2019- (36 mos up)(PF)60 mcg (15 mcg x4)/0.5 mL IM syringe ADM 0.5ML IM UTD 04/02 completed Not Available Not Available Not Available Multivita min Gummies 07/18 completed Not Available Not Available Not Available Ozempic 1 mg/dose (4 mg/3 mL) subcutane ous pen injector INJECT 1 MG UNDER THE SKIN ONE DAY A WEEK active Not Available Not Available No t Available Vitals Date Recorded Body mass index (BMI) Body height Heart rate Body temperature Body weight Systolic blood pressure Diastolic blood pressure Provider Name and Address Organization Details Last Updated DateTime 2 38.9 kg/m2 167.64 cm 71 /min 98.6 [degF] 870288. 76 g 130 mm[Hg] 78 mm[Hg] Not Available [facility] 3 04:51:39 Date Recorded Body mass index (BMI) Body height Heart rate Body temperature Body weight Systolic blood pressure Diastolic blood pressure Provider Name and Address Organization Details Last Updated DateTime 3 39.1 kg/m2 167.64 cm 82 /min 97.6 [degF] 976554. 35 g 122 mm[Hg] 84 mm[Hg] Not Available [facility] 3 04:51:39 Date Recorded Body height Body weight Body temperature Heart rate Oxygen saturation Oxygen saturation in Arterial blood by Pulse oximetry Systolic blood pressure Diastolic blood pressure Provider Name and Address Organization Details Last Updated DateTime 3 167.64 cm 585009. 02 g 98 [degF] 70 /min 98 % 98 % 124 mm[Hg] 84 mm[Hg] Alicia Hassan RN [facility] 3 15:58:20 Date Recorded Body height Body mass index (BMI) Body weight Body temperature Heart rate Systolic blood pressure Diastolic blood pressure Provider Name and Address Organization Details Last Updated DateTime 3 167.64 cm 37.9 kg/m2 507255. 21 g 98.4 [degF] 73 /min 122 mm[Hg] 78 mm[Hg] Olga rojas RN [facility] 3 15:16:25 Date Recorded Body height Body mass index (BMI) Body weight Body temperature Heart rate Oxygen saturation Oxygen saturation in Arterial blood by Pulse oximetry Systolic blood pressure Diastolic blood pressure Provider Name and Address Organization Details Last Updated DateTime 4 167.64 cm 36.7 kg/m2 501738. 19 g 97 [degF] 79 /min 98 % 98 % 151 mm[Hg] 92 mm[Hg] Hermelinda Tiwari MA [place] - [facility] 4 15:48:35 Social History Question Answer Notes LastModified by Organization Details LastModified Time Tobacco Smoking Status Never Smoker Not Available [facility] 12/29/2022 04:43:05 Do You Have An Advance Directive? No MIGRATION.030 707333 Information not available 12/29/2022 What Is Your Level Of Alcohol Consumption? None MIGRATION.030 182413 Information not available 12/29/2022 What Is Your Level Of Caffeine Consumption? Moderate MIGRATION.030 061148 Information not available 12/29/2022 How Much Tobacco Do You Chew? None MIGRATION.030 207680 Information not available 12/29/2022 In The 14 Days Before Symptom Onset, Have You Had Close Contact With A Laboratory-confi rmed COVID-19 While That Case Was Ill? No MIGRATION.030 [id number] Information not available 12/29/2022 In The 14 Days Before Symptom Onset, Have You Had Close Contact With A Person Who Is Under Investigation For COVID-19 While That Person Was Ill? No MIGRATION.0301 087521 Information not available 12/29/2022 Are You Currently Employed? Yes Information not available 07/18/2023 What Type Of Diet Are You Following? REGULAR MIGRATION.030 343719 Information not available 12/29/2022 Which Illicit Or Recreational Drugs Have You Used? None MIGRATION.030 765462 Information not available 12/29/2022 Do You Or Have You Ever Used E-cigarettes Or Vape? Never Used Electronic Cigarettes MIGRATION.030 158647 Information not available 12/29/2022 What Is The Highest Grade Or Level Of School You Have Completed Or The Highest Degree You Have Received? 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 No MIGRATION.0301 476661 Information not available 12/29/2022 What Is The Fluoride Status Of Your Home? Unknown MIGRATION.0301 068833 Information not available 12/29/2022 Are There Any Guns Present In Your Home? No MIGRATION.0301 334930 Information not available 12/29/2022 Do You Use Insect Repellent Routinely? No MIGRATION.0301 330744 Information not available 12/29/2022 Where Do You Live? [place] MIGRATION.0301 524783 Information not available 12/29/2022 Do You Have A Medical Power Of Instructor Product Inspection? No MIGRATION.0301 844387 Information not available 12/29/2022 What Was The Date Of Your Most Recent Tobacco Screening? 07/18/2023 Information not available 07/18/2023 Do You Have Any Pets? Yes MIGRATION.0301 584302 Information not available 12/29/2022 What Is Your Relationship Status? MIGRATION.0301 205599 Information not available 12/29/2022 Do You Use Your Seat Belt Or Car Seat Routinely? Yes MIGRATION.0301 [id number] Information not available 12/29/2022 Do You Have Smoke And Carbon Monoxide Detectors In Your Home? Yes MIGRATION.0301 985102 Information not available 12/29/2022 Are You Passively Exposed To Smoke? No MIGRATION.0301 107727 Information not available 12/29/2022 Do You Or Have You Ever Used Smokeless Tobacco? Never Used Smokeless Tobacco MIGRATION.0301 792607 Information not available 12/29/2022 Are There Any Smokers In Your House? No MIGRATION.0301 190884 Information not available 12/29/2022 How Much Tobacco Do You Smoke? No MIGRATION.0301 667323 Information not available 12/29/2022 What Types Of Sporting Activities Do You Participate In? Bowling MIGRATION.0301 285482 Information not available 12/29/2022 Do You Feel Stressed (tense, Restless, Nervous, Or Anxious, Or Unable To Sleep At Night)? [id number] MIGRATION.0301 160437 Information not available 12/29/2022 Do You Use Any Illicit Or Recreational Drugs? No MIGRATION.0301 636350 Information not available 12/29/2022 Do You Use Sunscreen Routinely? Yes MIGRATION.0301 769625 Information not available 12/29/2022 Has Tobacco Cessation Counseling Been Provided? No Not Needed-e tri Smoked MIGRATION.0301 086588 Information not available 12/29/2022 How Many Years Have You Smoked Tobacco? 0 MIGRATION.0301 924343 Information not available 12/29/2022 Have You Recently Traveled Abroad? No MIGRATION.0301 944813 Information not available 12/29/2022 Do You Have Any Dietary Restrictions? No MIGRATION.0301 354691 Information not available 12/29/2022 Do You Or Have You Ever Used Any Other Forms Of Tobacco Or Nicotine? No MIGRATION.0301 826376 Information not available 12/29/2022 Sex: Female Functional Status Question Answer Note LastModified by Organizat ion Details LastModified Time What is your exercise level? Moderate MIGRATION.[id number] 6 Information not available 12/29/2022 Mental Status None recorded. Family History Relationship Description Onset Age of this Age Resolved Age Notes LastModified by Organization Details LastModified Time Mother Diabetes mellitus MIGRATION.834 [id number] Not available 12/29/2022 04:44:04 Mother Hypertensive disorder MIGRATION.621 [id number] Not available 12/29/2022 04:44:04 Mother Osteoporosis MIGRATION.0 30 [id number] Not available 12/29/2022 04:44:04 Unspecified Relation Family history of stroke grandf ather MIGRATION.297 [id number] Not available 12/29/2022 04:44:04 Medical History Condition Response NERVE DISEASE N BLINDNESS N RHEUMATIC FEVER N KIDNEY STONES N BLADDER PROBLEMS N MRSA N OTHER # 1 N POLIO N LUNG DISEASE/DISORDER N COPD N RADIATION / CHEMOTHERAPY N Other # 2 N BLOOD DISEASES Y EAR OR HEARING PROBLEMS N MUMPS N DEPRESSION (INCLUDING POST ) N BOWEL PROBLEMS N STROKE/TIA N ULCERS N BENIGN PROSTATIC HYPERPLASIA N MEASLES N MYOCARDIAL INFARCTION N OBESITY N GERD/NAUSEA N ANEURYSM N URINARY/BLADDER/KIDNEY PROBLEMS N CORONARY ARTERY DISEASE (CAD) N ADDICTION CONCERNS N Impotence N ENDOMETRIOSIS N USE OF BLOOD THINNERS N SKIN PROBLEMS N GASTROINTESTINAL DISORDER N PERIPHERAL VASCULAR DISEASE N MUSCLE,JOINT OR BONE PROBLEMS N GASTROINTESTINAL BLEEDING N BLOOD CLOTS N ASTHMA N CATARACTS N ERECTILE DYSFUNCTION N VARICOSITIES N GI PROBLEMS N Low Testosterone N INFERTILITY N AIDS/HIV N CHEMOTHERAPY / RADIATION N LIVER DISEASE N MALE HYPOGONADISM N HYPERTENSION N Deficiency N TOURETTE'S N ANXIETY DISORDER Y BLOOD TRANSFUSION N ANEMIA/BLOOD DISORDER N CHRONIC EAR INFECTIONS N BRONCHITIS N TUBERCULOSIS N GLAUCOMA N FOOT PROBLEM N DIVERTICULITIS N SLEEP APNEA N CHICKENPOX N INFECTIOUS DISEASE N PROSTATE N HEART ARRHYTHMIA N INSOMNIA N HIGH CHOLESTEROL / HYPERLIPIDEMIA Y HYPERTHYROIDISM N EYE PROBLEMS N EDEMA N CHRONIC PAIN SYNDROME N HYPOTHYROIDISM N CONSTIPATION N CAROTID BLOCKAGE N BACK / NECK PROBLEMS N HAVE YOU BEEN HOSPITALIZED OR SEEN IN [facility] IN THE PAST YEAR ? N ATHEROSCLEROSIS N BREAST PROBLEMS N DIALYSIS N ECZEMA N OSTEOPOROSIS N ARTHRITIS N APPENDICITIS N DIABETES, TYPE Y BAD TEETH N ENT N HEARTBURN / REFLUX N AUTISM SPECTRUM DISORDER (ASD) N HEPATITIS / LIVER DISEASE N GOUT N SLEEP DISORDER N ALZHEIMER'S DISEASE N Brain Problems N HERPES N DEMENTIA N SEIZURES/EPILEPSY N HEADACHES/MIGRAINES N VASCULAR DISEASE N PACEMAKER N Blood Disorder N DIZZINESS N KIDNEY DISEASE N HEART DISEASE/HEART PROBLEMS N MULTIPLE SCLEROSIS N CARDIAC ARRHYTHMIA N CANCER: SPECIFY N Gall Stones N ATRIAL FIBRILLATION N PULMONARY EMBOLISM N AUTOIMMUNE DISEASE N Gynecological HistoryNo gynecological history recorded. Obstetrics History GPAL:G 0 P 0 0 0 0 Immunizations Vaccine Type Date Status Note Provider Nam e and Address Organization Details Recorded Time Influenza, split virus, quadrivalent, preservative 1 completed Not Available [facility] 11/14/2023 04:54:48 COVID-19 vaccine, vector-nr, rS-Ad26, PF, 0.5 mL 1 completed Not Available [facility] 11/14/2023 04:54:48 Influenza, split virus, quadrivalent, preservative 2 completed Not Available [facility] 11/14/2023 04:54:48 influenza, unspecified formulation 8 completed Not Available [facility] 11/14/2023 04:54:48 Past Encounters Encounter ID Performer Location Encounter Start Date Encounter Closed Date Diagnosis/Indication Diagnosis SNOMED-CT Code Diagnosis ICD10 Code Diagnosis Note [id number] [facility] [address] [place] [address] 04/02/2021 00:00:00 04/02/2021 20:23:35 [id number] [facility] Frances Kramer [address] [place] [address] 09/03/2021 00:00:00 09/03/2021 15:16:50 [id number] [facility] [address] [place] [address] 10/06/2021 00:00:00 10/06/2021 21:46:06 [id number] [facility] [place] [address] [place] [address] 10/20/2021 00:00:00 10/20/2021 15:46:45 [id number] [facility] [address] [place] [address] 12/29/2021 00:00:00 01/16/2022 22:49:24 [id number] [facility] [address] [facility] [address] [address] 05/04/2022 00:00:00 05/04/2022 20:29:13 [id number] [facility] [address] [facility] [address] [place] [address] 05/25/2022 00:00:00 05/25/2022 17:00:48 [id number] [facility] [address] [facility] [address] [place] [address] 06/23/2022 00:00:00 07/10/2022 16:50:35 [id number] [facility] [address] [place], [place] [address]e., [facility] 15 [place] [address] 08/26/2022 00:00:00 09/23/2022 16:02:54 [id number] [facility] [address] [place], [place] [address]., [address] [address] 10/15/2022 00:00:00 10/16/2022 15:04:14 [id number] [facility] [address] [address] [place] [address] [address] [address] 11/25/2022 00:00:00 12/04/2022 23:14:56 [id number] Genaro Perez MD [facility] [address] [place] [address] 03/24/2023 15:35:51 03/24/2023 16:37:41 Type 2 diabetes mellitus without complication 851818256 E11.9 Pure hypercholesterolemia 588787082 E78.00 Anxiety 16748931 F41.9 [id number] Genaro Perez MD [facility] Internal Med [facility] [address] [place] [address] 1 07/18/2023 15:01:03 07/18/2023 16:00:13 Anxiety 95076541 F41.9 Pure hypercholesterolemia 496743615 E78.00 Type 2 krupa betes mellitus without complication 805508991 E11.9 [id number] Genaro Perez MD [facility] Internal Med [facility] [address] [facility] [address] [place] [address] 1 11/14/2023 15:26:23 11/14/2023 16:21:17 Anxiety 60208659 F41.9 Type 2 krupa betes mellitus without complication 350873431 E11.9 Pure hypercholesterolemia 492583665 E78.00 Health Concerns Section Related Observation LastModified by Organization Detai ls LastModified Time None Recorded Concern Status LastModified by Organization Details LastModified Time None Recorded Advance Directives Directive N: Payers Encounter Date Sequence Insurance Name Policy Number Policy Peoples Covered Member ID Peoples Member ID Guarantor Name 03/24/2023 1 [place] [id number] Salma Urias [id number] Salma Urias 03/24/2023 2 [place] [id number] Florencio Urias [id number] Salma Urias 07/18/2023 1 [place] [id number] Salma Urias [id number] Salma Urias 07/18/2023 2 [place] [id number] Florencio Urias [id number] Salma Urias 11/14/2023 1 [place] [id number] Salma Urias [id number] Salma Urias 11/14/[address] [facility]: ([place] [id number] Florencio Urias [id number] Salma Urias Notes Date Note Type Note Provider Name and Address Organization Details Recorded Time 3 text/htm l Diabetes no polyphagia no polydipsiaHyperlipidemia Try follow-upAnxiety stable Genaro Perez MD [address] [employer], [place], [address], [employer] [facility] 03/24/2023 23:21:47 3 text/htm l Diabetes no polyphagia no polydipsiaHyperlipidemia Try follow-upAnxiety a little worse no SI or HI Genaro Perez MD [address] [employer], [place], [address], [employer] [facility] 07/18/2023 22:49:56 4 text/htm l Anxiety stable no SI or HI no side effects from medicationDiabetes there has not been any hypoglycemic spellsDyslipidemia this trying to follow reduced fat diet Genaro Perez MD [address] [employer], [place], [address], [employer] [facility] 11/30/2023 08:53:37 OBGyn Episode No OBEpisode recorded.
--- OUTSIDE RECORDS SUMMARY | 2025-02-09 09:29 | XMS_ITS | Continuity of Care Document ---
Author Organization [facility] Address [address] [place] [address] Phone Care Team Providers Care Wafer Production Worker Name Role Phone Remy Roman DO Unavailable Unavailable Advance Directives Directive Yes / No Effective Date File Name No Information Encounters Encounter Description Practice Location Reason(s) For Visit Diagnoses Date Provider Providers Copied on Encounter [facility], [address], [place], [place], [id number], [place] tel:[phone] [facility] No Information Jessie Brock. [address] [facility], [place], [address], [place]. tel: [phone] Family History Family Member Type Diagnosis Age At Onset No Information Payers Payer name Insurance type Covered libertarian ID Authoriza tion(s) No Information Social History Type Description Quantity Date Captured Comments Sex Female Smoking Status No Information Chief Complaint And Reason For Visit No Information Reason For Referral Reason For Referral No Information History Of Present Illness Encounter Date Complaint History Of Prese nt Illness No Information Functional Status Date Functional Assessmen t No Information Instructions Date Instruction Additional Infor mation No Information Assessments Type Assessment Date No Information Patient Care Teams Name Effective Dates (start - stop) Status Members No Information
[2025-02-09 10:16] LABS: Basophils Percent Auto 0.6 % (0.2-1.2); Eosinophils Absolute Auto 0.2 K/mm3 (0-0.3); Eosinophils Percent Auto 2.8 % (0-4.4); Hematocrit 42.5 % (37.0-47.0); Hemoglobin 13.6 g/dL (12.0-15.0); Immature Granulocyte Absolute 0.03 K/mm3 (0.00-0.031); Immature Granulocyte Percent A 0.4 % (0-0.5); Lymphocytes Absolute Auto 1.31 K/mm3 (0.9-3.2); Lymphocytes Percent Auto 19.5 % (18.3-44.2); Mean Corpuscular Hemoglobin 28.7 pg (26-34); Mean Corpuscular Volume 89.7 fl (80-100); Mean Platelet Volume 11.4 fl (7.4-10.4); Monocytes Absolute Auto 0.5 K/mm3 (0.1-0.6); Monocytes Percent Auto 6.7 % (2.6-8.5); Neutrophils Absolute Auto 4.7 K/mm3 (1.3-6.7); Platelet Count Result 259 k/mm3 (150-375); Red Blood Count 4.74 M/mm3 (4.2-5.4); Red Cell Distribution Width 13.7 % (11.5-14.5); White Blood Count 6.7 K/mm3 (4.5-10.0)
[2025-02-09 10:33] LABS: Alanine Aminotransferase 13 U/L (6-35); Albumin Level 4.5 g/dL (3.5-5.1); Alkaline Phosphatase 122 U/L (38-126); Anion Gap 7 mmol/L (4-12); Aspartate Amino Transferase 21 U/L (14-36); Bilirubin,Total 0.5 mg/dL (0.2-1.3); Blood Urea Nitrogen 14 mg/dL (7-17); Calcium 9.4 mg/dL (8.4-10.2); Carbon Dioxide 32 mmol/L (22-30); Chloride 103 mmol/L (98-107); Cholesterol 154 mg/dL (0-200); Estimated Glomerular Filt Rate > 60; Glucose 106 mg/dL (65-110); HDL Direct 64 mg/dL; Potassium 4.3 mmol/L (3.4-5.0); Sodium 142 mmol/L (137-145); Triglycerides 61 mg/dL (<150)
[2025-02-09 10:44] LABS: LDL Cholesterol Direct 66 mg/dL
[2025-02-09 11:26] LABS: Hemoglobin A1C 5.4 % (<5.7)
== END 2025-02-09 09:22 | disposition home or self-care (01) ==
PROVIDERS: PCP Internal Medicine; Visit Provider Internal Medicine
DX: E11.9 Type 2 diabetes mellitus without complications (principal); E78.5 Hyperlipidemia, unspecified
CPT/HCPCS: 36415; 80053; 80061; 83036; 85025